=== PATIENT | male | born 1945 | race Caucasian/White ===

== ENCOUNTER → 2017-03-20 | Outpatient (CLI) | payer MEDICARE, BC ==
[~2017-03-20] MED LIST: AMLO10 PO; Advil200 M1; Ativan1 MG SL; CHLO25B PO; CLON.5 PO; ERGO50000 PO; LEVSOD150 PO; PRAM.125 PO; TRAM50 PO; VICODIN 5-3001 EACH PO; Zestril40 MG PO
== END ==
LOC: LAB 13:33
DX: N39.0 Urinary tract infection, site not specified (principal)
CPT/HCPCS: 87077; 87086; 87186

== ENCOUNTER → 2018-10-24 | Outpatient (CLI) | payer MEDICARE, BC | END | disposition home or self-care (01) | LOC: LAB 21:17 | DX: L03.115 Cellulitis of right lower limb (principal) | CPT/HCPCS: 87070; 87075; 87205 ==

== ENCOUNTER 2018-11-01 07:33 | Day surgery (SDC) | payer MEDICARE, BC | END 2018-11-01 23:43 | disposition home or self-care (01) | LOC: WOUND 07:33 | DX: L97.821 Non-pressure chronic ulcer of other part of left lower leg limited to breakdown of skin (principal); L97.811 Non-pressure chronic ulcer of other part of right lower leg limited to breakdown of skin; G47.33 Obstructive sleep apnea (adult) (pediatric); I10 Essential (primary) hypertension; J44.9 Chronic obstructive pulmonary disease, unspecified; L40.9 Psoriasis, unspecified | CPT/HCPCS: G0463 ==

== ENCOUNTER 2018-11-09 00:44 | Day surgery (SDC) | payer MEDICARE, BC | END 2018-11-09 22:54 | disposition home or self-care (01) | LOC: WOUND 00:44 | DX: L97.821 Non-pressure chronic ulcer of other part of left lower leg limited to breakdown of skin (principal); L97.811 Non-pressure chronic ulcer of other part of right lower leg limited to breakdown of skin; L40.0 Psoriasis vulgaris; I10 Essential (primary) hypertension | CPT/HCPCS: G0463 ==

== ENCOUNTER 2018-11-23 08:44 | Day surgery (SDC) | payer MEDICARE, BC | END 2018-11-23 23:39 | disposition home or self-care (01) | LOC: WOUND 08:44 | DX: L97.811 Non-pressure chronic ulcer of other part of right lower leg limited to breakdown of skin (principal); L97.821 Non-pressure chronic ulcer of other part of left lower leg limited to breakdown of skin; L40.0 Psoriasis vulgaris; I10 Essential (primary) hypertension | CPT/HCPCS: 87081 ==

== ENCOUNTER 2018-11-26 14:42 | Day surgery (SDC) | payer MEDICARE, BC | END 2018-11-26 22:53 | disposition home or self-care (01) | LOC: WOUND 14:42 | DX: L97.811 Non-pressure chronic ulcer of other part of right lower leg limited to breakdown of skin (principal); L97.821 Non-pressure chronic ulcer of other part of left lower leg limited to breakdown of skin; J44.9 Chronic obstructive pulmonary disease, unspecified; G47.33 Obstructive sleep apnea (adult) (pediatric); I10 Essential (primary) hypertension; L40.0 Psoriasis vulgaris; Z86.14 Personal history of Methicillin resistant Staphylococcus aureus infection; Z79.899 Other long term (current) drug therapy ==

== ENCOUNTER 2018-11-28 09:36 | Day surgery (SDC) | payer MEDICARE, BC | END 2018-11-28 23:01 | disposition home or self-care (01) | LOC: WOUND 09:36 | DX: L97.811 Non-pressure chronic ulcer of other part of right lower leg limited to breakdown of skin (principal); L97.821 Non-pressure chronic ulcer of other part of left lower leg limited to breakdown of skin; L40.0 Psoriasis vulgaris; I10 Essential (primary) hypertension; Z86.14 Personal history of Methicillin resistant Staphylococcus aureus infection ==

== ENCOUNTER 2018-11-30 00:43 | Day surgery (SDC) | payer MEDICARE, BC | END 2018-11-30 23:00 | disposition home or self-care (01) | LOC: WOUND 00:43 | DX: L97.811 Non-pressure chronic ulcer of other part of right lower leg limited to breakdown of skin (principal); L40.0 Psoriasis vulgaris; I10 Essential (primary) hypertension; G47.33 Obstructive sleep apnea (adult) (pediatric); J44.9 Chronic obstructive pulmonary disease, unspecified ==

== ENCOUNTER 2018-12-06 10:51 | Day surgery (SDC) | payer MEDICARE, BC | END 2018-12-06 23:16 | disposition home or self-care (01) | LOC: WOUND 10:51 | DX: L97.811 Non-pressure chronic ulcer of other part of right lower leg limited to breakdown of skin (principal); L40.0 Psoriasis vulgaris; I10 Essential (primary) hypertension; J44.9 Chronic obstructive pulmonary disease, unspecified; E03.9 Hypothyroidism, unspecified; G47.33 Obstructive sleep apnea (adult) (pediatric); Z79.899 Other long term (current) drug therapy ==

== ENCOUNTER 2018-12-14 00:33 | Day surgery (SDC) | payer MEDICARE, BC | END 2018-12-14 22:54 | disposition home or self-care (01) | LOC: WOUND 00:33 | DX: L97.811 Non-pressure chronic ulcer of other part of right lower leg limited to breakdown of skin (principal); L97.821 Non-pressure chronic ulcer of other part of left lower leg limited to breakdown of skin; L40.0 Psoriasis vulgaris; I10 Essential (primary) hypertension; K58.9 Irritable bowel syndrome, unspecified; E03.9 Hypothyroidism, unspecified; G47.33 Obstructive sleep apnea (adult) (pediatric); J44.9 Chronic obstructive pulmonary disease, unspecified; G62.9 Polyneuropathy, unspecified; H40.9 Unspecified glaucoma; Z88.1 Allergy status to other antibiotic agents; Z91.048 Other nonmedicinal substance allergy status; Z79.899 Other long term (current) drug therapy | CPT/HCPCS: G0463 ==

== ENCOUNTER 2018-12-21 08:51 | Day surgery (SDC) | payer MEDICARE, BC ==
[2018-12-22] MEDS ORDERED: LORA1SY PO (18:17)
[2018-12-22] MEDS ORDERED: Flonase 0.05% N16 GM (18:18)
[2018-12-22] MEDS ORDERED: DOC250 PO (18:18)
== END 2018-12-21 23:51 | disposition home or self-care (01) ==
LOC: WOUND 08:51
DX: L97.811 Non-pressure chronic ulcer of other part of right lower leg limited to breakdown of skin (principal); L40.0 Psoriasis vulgaris; I87.2 Venous insufficiency (chronic) (peripheral); I10 Essential (primary) hypertension; J44.9 Chronic obstructive pulmonary disease, unspecified; E03.9 Hypothyroidism, unspecified; Z79.899 Other long term (current) drug therapy

== ENCOUNTER 2018-12-22 17:59 | Emergency (ER) | payer MEDICARE, BC ==
[~2018-12-22] VITALS: Ht 177.8 cm; Wt 136.1 kg
[2018-12-22] MEDS ORDERED: LORA1SY PO (18:17)
[2018-12-22] MEDS ORDERED: DOC250 PO (18:18)
[2018-12-22] MEDS ORDERED: Flonase 0.05% N16 GM (18:18)
== END 2018-12-22 20:40 | disposition home or self-care (01) ==
LOC: ER 17:59
DX: I83.218 Varicose veins of right lower extremity with both ulcer of other part of lower extremity and inflammation (principal); I83.228 Varicose veins of left lower extremity with both ulcer of other part of lower extremity and inflammation; Z48.01 Encounter for change or removal of surgical wound dressing; I10 Essential (primary) hypertension; E03.9 Hypothyroidism, unspecified; Z87.891 Personal history of nicotine dependence; Z91.048 Other nonmedicinal substance allergy status; Z91.040 Latex allergy status; Z88.8 Allergy status to other drugs, medicaments and biological substances; Z88.1 Allergy status to other antibiotic agents; Z88.5 Allergy status to narcotic agent; Z79.899 Other long term (current) drug therapy
CPT/HCPCS: 99282

== ENCOUNTER 2018-12-25 11:41 | Day surgery (SDC) | payer MEDICARE, BC ==
[~2018-12-25 11:41] MED LIST changes: +DOC250 PO; +Flonase 0.05% N16 GM; +LORA1SY PO
== END 2018-12-25 22:40 | disposition home or self-care (01) ==
LOC: WOUND 11:41
DX: L97.811 Non-pressure chronic ulcer of other part of right lower leg limited to breakdown of skin (principal); L40.0 Psoriasis vulgaris; I10 Essential (primary) hypertension; G47.33 Obstructive sleep apnea (adult) (pediatric); J44.9 Chronic obstructive pulmonary disease, unspecified; Z79.899 Other long term (current) drug therapy

== ENCOUNTER 2018-12-27 14:21 | Day surgery (SDC) | payer MEDICARE, BC | END 2018-12-27 23:14 | disposition home or self-care (01) | LOC: WOUND 14:21 | DX: L97.811 Non-pressure chronic ulcer of other part of right lower leg limited to breakdown of skin (principal); L40.0 Psoriasis vulgaris; I87.2 Venous insufficiency (chronic) (peripheral); I10 Essential (primary) hypertension; G47.33 Obstructive sleep apnea (adult) (pediatric); J44.9 Chronic obstructive pulmonary disease, unspecified ==

== ENCOUNTER 2018-12-31 07:53 | Day surgery (SDC) | payer MEDICARE, BC | END 2018-12-31 22:59 | disposition home or self-care (01) | LOC: WOUND 07:53 | DX: L97.811 Non-pressure chronic ulcer of other part of right lower leg limited to breakdown of skin (principal); L40.0 Psoriasis vulgaris; I10 Essential (primary) hypertension; J44.9 Chronic obstructive pulmonary disease, unspecified; G47.33 Obstructive sleep apnea (adult) (pediatric); Z79.899 Other long term (current) drug therapy ==

== ENCOUNTER 2019-01-08 08:09 | Day surgery (SDC) | payer MEDICARE, BC | END 2019-01-08 22:59 | disposition home or self-care (01) | LOC: WOUND 08:09 | DX: L97.811 Non-pressure chronic ulcer of other part of right lower leg limited to breakdown of skin (principal); L40.0 Psoriasis vulgaris; I10 Essential (primary) hypertension; J44.9 Chronic obstructive pulmonary disease, unspecified; G47.33 Obstructive sleep apnea (adult) (pediatric); E03.9 Hypothyroidism, unspecified; L84 Corns and callosities; Z79.899 Other long term (current) drug therapy | CPT/HCPCS: 36415; 80076; 83880; 85025; G0463 ==

== ENCOUNTER → 2019-04-05 | Outpatient (CLI) | payer MEDICARE, BC ==
[2019-04-05 10:59] LABS: Source, Urine Clean Catch
[2019-04-05 12:13] LABS: Bilirubin, Urine Neg (Neg); Blood, Urine 3+ (Neg); Glucose Qualitative, Urine Neg (Neg); Ketones, Urine Neg (Neg); Leukocyte Esterase, Urine Neg (Neg); Nitrite, Urine Neg (Neg); Protein, Urine Neg (Neg); Specific Gravity, Urine 1.005 (1.003-1.022); Urobilinogen, Urine NORM (Normal)
[2019-04-05 12:29] LABS: Appearance, Urine Clear (Clear); Color, Urine Yellow (P-Yellow)
[2019-04-05 12:30] LABS: Bacteria Rare /hpf; Squamous Epithelial Cells Rare /hpf (Few); White Blood Cells, Urine 0-2 /hpf (0-5)
== END | disposition home or self-care (01) ==
LOC: LAB SHORT 10:58 → OLS 10:58 → LAB FUT 04-05 09:40
PROVIDERS: Physical Medicine & Rehabilitation Pain Medicine
DX: M54.5 Low back pain (principal)
CPT/HCPCS: 81001

== ENCOUNTER 2019-10-29 08:41 | Day surgery (SDC) | payer MEDICARE, BC ==
[~2019-10-29] VITALS: Ht 177.8 cm; Wt 139.8 kg
[~2019-10-29 08:41] MED LIST changes: +B-COMPLEX PLU400 MCG PO; +CLOBETASOL 0.0560 GM; +FURO40 PO; +LEVO-T175 MCG PO; +METTREX2.5 PO; +OXYC10TA19 PO; +PRAM.5 PO
== END 2019-10-29 11:00 | disposition home or self-care (01) ==
LOC: ORSCSDS 08:41
PROVIDERS: Surgery
PROC: 0DJD8ZZ Inspection of Lower Intestinal Tract, Via Natural or Artificial Opening Endoscopic (ICD-10-PCS; principal; 2019-10-29 10:00)
DX: Z12.11 Encounter for screening for malignant neoplasm of colon (principal); Z86.010 Personal history of colon polyps; Z80.0 Family history of malignant neoplasm of digestive organs; I10 Essential (primary) hypertension; G47.33 Obstructive sleep apnea (adult) (pediatric); E66.01 Morbid (severe) obesity due to excess calories; Z68.41 Body mass index [BMI] 40.0-44.9, adult; Z87.891 Personal history of nicotine dependence; Z79.899 Other long term (current) drug therapy
CPT/HCPCS: J2704; J7120

== ENCOUNTER → 2020-06-11 | Outpatient (CLI) | payer MEDICARE, BC ==
[2020-06-11 14:20] LABS: BASOPHILS ABSOLUTE AUTO 0.06 K/mm3 (0.00-0.23); BASOPHILS PERCENT AUTO 1 % (0-2); EOSINOPHILS ABSOLUTE AUTO 0.18 K/mm3 (0.00-0.68); EOSINOPHILS PERCENT AUTO 2 % (0-6); Hematocrit 40.2 % (37.0-53.0); IMMATURE GRAN ABSOLUTE AUTO 0.02 K/mm3 (0.00-0.10); IMMATURE GRAN PERCENT AUTO 0 % (0-1); LYMPHOCYTES ABSOLUTE AUTO 0.85 K/mm3 (0.84-5.20); LYMPHOCYTES PERCENT AUTO 9 % (21-46); MONOCYTES ABSOLUTE AUTO 0.53 K/mm3 (0.16-1.47); MONOCYTES PERCENT AUTO 6 % (4-13); Mean Corpuscular HGB 31.4 pg (26.0-34.0); Mean Corpuscular HGB Conc 32.3 g/dL (31.5-36.5); Mean Corpuscular Volume 97 fL (80-100); Mean Platelet Volume 9.6 fL (9.1-12.4); NEUTROPHILS ABSOLUTE AUTO 7.73 K/mm3 (1.96-9.15); NEUTROPHILS PERCENT AUTO 83 % (41-73); Platelet Count 243 K/mm3 (150-400); RDW Coefficient Variation 13.5 % (11.7-14.2); RDW Standard Deviation 48.6 fL (35.1-46.3); Red Blood Cell Count 4.14 M/mm3 (4.30-5.90); White Blood Cell Count 9.37 K/mm3 (4.00-11.30)
[2020-06-11 16:24] LABS: Alanine Aminotransfer (ALT/SGP 32 U/L (12-78); Albumin, Blood 3.6 g/dL (3.4-5.0); Alk Phos 87 U/L (50-136); Anion Gap 3 mmol/L (6-16); Aspartate Aminotrans (AST/SGOT 50 U/L (12-37); Bilirubin, Total 0.4 mg/dL (0.1-1.0); Blood Urea Nitrogen 23 mg/dL (8-24); Bun/Creatinine Ratio 28.3 (12.0-20.0); CO2, Blood 32 mmol/L (21-32); Chloride, Blood 106 mmol/L (98-108); Creatinine, Blood 0.81 mg/dL (0.60-1.20); Globulin, Blood 3.6 g/dL (2.2-4.0); Glomerular Filtration Rate >60 (60-); Glucose, Blood 94 mg/dL (70-99); Potassium, Blood 3.6 mmol/L (3.5-5.5); Sodium, Blood 141 mmol/L (136-145); Total Protein, Blood 7.2 g/dL (6.4-8.2)
== END ==
LOC: LAB SHORT 11:51 → LAB UCHC 11:51
PROVIDERS: Internal Medicine Rheumatology
DX: L40.9 Psoriasis, unspecified (principal)
CPT/HCPCS: 80053; 85025; 85651

== ENCOUNTER → 2020-09-23 | Outpatient (CLI) | payer MEDICARE, BC ==
[2020-09-23 13:10] LABS: BASOPHILS ABSOLUTE AUTO 0.04 K/mm3 (0.00-0.23); BASOPHILS PERCENT AUTO 0 % (0-2); EOSINOPHILS ABSOLUTE AUTO 0.13 K/mm3 (0.00-0.68); EOSINOPHILS PERCENT AUTO 1 % (0-6); Hematocrit 39.9 % (37.0-53.0); Hemoglobin 13.1 g/dL (13.5-17.5); IMMATURE GRAN ABSOLUTE AUTO 0.04 K/mm3 (0.00-0.10); IMMATURE GRAN PERCENT AUTO 0 % (0-1); LYMPHOCYTES ABSOLUTE AUTO 0.74 K/mm3 (0.84-5.20); LYMPHOCYTES PERCENT AUTO 8 % (21-46); MONOCYTES ABSOLUTE AUTO 0.69 K/mm3 (0.16-1.47); MONOCYTES PERCENT AUTO 8 % (4-13); Mean Corpuscular HGB 31.7 pg (26.0-34.0); Mean Corpuscular HGB Conc 32.8 g/dL (31.5-36.5); Mean Corpuscular Volume 97 fL (80-100); Mean Platelet Volume 9.6 fL (9.1-12.4); NEUTROPHILS ABSOLUTE AUTO 7.59 K/mm3 (1.96-9.15); NEUTROPHILS PERCENT AUTO 82 % (41-73); Platelet Count 229 K/mm3 (150-400); RDW Coefficient Variation 14.6 % (11.7-14.2); RDW Standard Deviation 51.4 fL (35.1-46.3); Red Blood Cell Count 4.13 M/mm3 (4.30-5.90); White Blood Cell Count 9.23 K/mm3 (4.00-11.30)
[2020-09-23 14:17] LABS: Albumin, Blood 3.3 g/dL (3.4-5.0); Albumin/Globulin Ratio 0.9 (0.8-1.8); Bilirubin, Direct 0.1 mg/dL (0.0-0.3); Bilirubin, Indirect 0.2 mg/dL (0.1-0.7); Bilirubin, Total 0.3 mg/dL (0.1-1.0); Globulin, Blood 3.6 g/dL (2.2-4.0); Total Protein, Blood 6.9 g/dL (6.4-8.2)
== END | disposition home or self-care (01) ==
LOC: LAB SHORT 12:21 → LAB 12:21
PROVIDERS: Internal Medicine Rheumatology
DX: L40.9 Psoriasis, unspecified (principal)
CPT/HCPCS: 80076; 85025; 85651

== ENCOUNTER 2020-10-20 02:22 | Day surgery (SDC) | payer MEDICARE, BC | END 2020-10-20 22:41 | disposition home or self-care (01) | LOC: WOUND 02:22 | DX: L97.819 Non-pressure chronic ulcer of other part of right lower leg with unspecified severity (principal); I87.2 Venous insufficiency (chronic) (peripheral); I73.9 Peripheral vascular disease, unspecified; E03.9 Hypothyroidism, unspecified; G47.33 Obstructive sleep apnea (adult) (pediatric); I10 Essential (primary) hypertension; J44.9 Chronic obstructive pulmonary disease, unspecified; G62.9 Polyneuropathy, unspecified; L40.9 Psoriasis, unspecified; L93.0 Discoid lupus erythematosus; M19.90 Unspecified osteoarthritis, unspecified site; Z87.891 Personal history of nicotine dependence; Z88.1 Allergy status to other antibiotic agents; Z88.8 Allergy status to other drugs, medicaments and biological substances; Z91.048 Other nonmedicinal substance allergy status | CPT/HCPCS: A9270; G0463 ==

== ENCOUNTER → 2020-10-21 | Outpatient (CLI) | payer MEDICARE, BC | LOC: LAB 12:12 → LAB SHORT 12:12 | DX: D48.5 Neoplasm of uncertain behavior of skin (principal); C44.319 Basal cell carcinoma of skin of other parts of face | CPT/HCPCS: 88305 ==

== ENCOUNTER 2020-10-28 00:04 | Day surgery (SDC) | payer MEDICARE, BC | END 2020-10-28 23:58 | disposition home or self-care (01) | LOC: WOUND 00:04 | DX: L03.115 Cellulitis of right lower limb (principal); L97.829 Non-pressure chronic ulcer of other part of left lower leg with unspecified severity; I73.9 Peripheral vascular disease, unspecified; E03.9 Hypothyroidism, unspecified; I10 Essential (primary) hypertension; J44.9 Chronic obstructive pulmonary disease, unspecified | CPT/HCPCS: A9270; G0463 ==

== ENCOUNTER → 2020-11-03 | Outpatient (CLI) | payer MEDICARE, BC ==
[2020-11-03 18:29] LABS: Source, Urine Clean Catch
[2020-11-03 19:38] LABS: Appearance, Urine Hazy (Clear); Bilirubin, Urine Neg (Neg); Blood, Urine 5+ (Neg); Color, Urine Yellow (P-Yellow); Glucose Qualitative, Urine Neg (Neg); Ketones, Urine Neg (Neg); Leukocyte Esterase, Urine 3+ (Neg); Nitrite, Urine Neg (Neg); Protein, Urine 2+ (Neg); Specific Gravity, Urine 1.015 (1.003-1.022); Urobilinogen, Urine 1+ (Normal)
[2020-11-03 19:48] LABS: White Blood Cells, Urine 25-50 /hpf (0-5)
[2020-11-03 19:49] LABS: Bacteria Few /hpf; Mucus Light (0-Heavy); Squamous Epithelial Cells Many /hpf (Few)
== END | disposition home or self-care (01) ==
LOC: LAB SHORT 13:45 → LAB 13:45
PROVIDERS: Physician Assistant
DX: N30.00 Acute cystitis without hematuria (principal); R30.0 Dysuria
CPT/HCPCS: 81001; 87077; 87086; 87186

== ENCOUNTER 2020-11-04 02:30 | Day surgery (SDC) | payer MEDICARE, BC | END 2020-11-04 22:47 | disposition home or self-care (01) | LOC: WOUND 02:30 | DX: L97.829 Non-pressure chronic ulcer of other part of left lower leg with unspecified severity (principal); I87.2 Venous insufficiency (chronic) (peripheral); I73.9 Peripheral vascular disease, unspecified; K58.9 Irritable bowel syndrome, unspecified; E03.9 Hypothyroidism, unspecified; I10 Essential (primary) hypertension; J44.9 Chronic obstructive pulmonary disease, unspecified; G62.9 Polyneuropathy, unspecified | CPT/HCPCS: A9270; G0463 ==

== ENCOUNTER → 2020-11-26 | Outpatient (CLI) | payer MEDICARE, BC | LOC: LAB SHORT 12:35 → LAB 12:35 | DX: C44.310 Basal cell carcinoma of skin of unspecified parts of face (principal); L57.0 Actinic keratosis; L82.1 Other seborrheic keratosis | CPT/HCPCS: 88305 ==

== ENCOUNTER → 2021-01-20 | Outpatient (CLI) | payer MEDICARE, BC | END | disposition home or self-care (01) | LOC: LAB 11:41 → LAB SHORT 11:41 | DX: C44.329 Squamous cell carcinoma of skin of other parts of face (principal); C44.519 Basal cell carcinoma of skin of other part of trunk | CPT/HCPCS: 88305 ==

== ENCOUNTER → 2021-03-08 | Outpatient (CLI) | payer MEDICARE, BC | END | disposition home or self-care (01) | LOC: LAB SHORT 14:57 | DX: D04.39 Carcinoma in situ of skin of other parts of face (principal) | CPT/HCPCS: 88305 ==

== ENCOUNTER → 2021-09-21 | Outpatient (CLI) | payer MEDICARE, BC | END | disposition home or self-care (01) | LOC: LAB SHORT 10:30 → PLD 10:30 | DX: K13.0 Diseases of lips (principal); K14.0 Glossitis | CPT/HCPCS: 88305; 88312 ==

== ENCOUNTER → 2021-11-30 | Outpatient (CLI) | payer MEDICARE, BC | END | disposition home or self-care (01) | LOC: LAB 07:40 → LAB SHORT 07:40 | DX: R30.0 Dysuria (principal); R35.0 Frequency of micturition; R39.15 Urgency of urination | CPT/HCPCS: 87077; 87086; 87186 ==

== ENCOUNTER 2021-12-21 11:12 | Day surgery (SDC) | payer MEDICARE, BC ==
[~2021-12-21] VITALS: Ht 177.8 cm; Wt 126.8 kg
[2021-12-21] MEDS ORDERED: CALCIUM CIT 311 EAC7 (12:05)
[2021-12-21] MEDS ORDERED: DOC250 (12:06)
[2021-12-21] MEDS ORDERED: MONT10T (12:06)
[2021-12-21] MEDS ORDERED: IRON18 MG (12:06)
[2021-12-21] MEDS ORDERED: OMEP20ER (12:06)
[2021-12-21] MEDS ORDERED: POTA8 (12:07)
[2021-12-21] MEDS ORDERED: COSENTYX P150 MG/11 (12:07)
[2021-12-21] MEDS ORDERED: TRAM50 (12:08)
[2021-12-21] MEDS ORDERED: NYSTRIT (12:08)
--- NOTE | 2021-12-21 12:43 | NUR ---
12/21/21 1243 Mellissa Ramos TWO ATTEMPTS AT IV. FIRST ATTEMPT BY AMY IN R WRIST INFILTRATED. SECOND ATTEMPT IN R HAND BY AMY SUCESSFUL.
== END 2021-12-21 13:45 | disposition home or self-care (01) ==
LOC: ORSCSDS 11:12
PROVIDERS: Student in an Organized Health Care Education/Training Program
PROC: 0DB78ZX Excision of Stomach, Pylorus, Via Natural or Artificial Opening Endoscopic, Diagnostic (ICD-10-PCS; principal; 2021-12-21 12:45)
PROC: 0DB98ZX Excision of Duodenum, Via Natural or Artificial Opening Endoscopic, Diagnostic (ICD-10-PCS; principal; 2021-12-21 12:45)
PROC: 0DB58ZX Excision of Esophagus, Via Natural or Artificial Opening Endoscopic, Diagnostic (ICD-10-PCS; principal; 2021-12-21 12:45)
DX: R13.10 Dysphagia, unspecified (principal); K29.80 Duodenitis without bleeding; K20.80 Other esophagitis without bleeding; I10 Essential (primary) hypertension; G47.33 Obstructive sleep apnea (adult) (pediatric); E66.01 Morbid (severe) obesity due to excess calories; Z68.41 Body mass index [BMI] 40.0-44.9, adult; Z87.891 Personal history of nicotine dependence; Z79.899 Other long term (current) drug therapy
CPT/HCPCS: 88305; 88312; 88342; J2704; J7120

== ENCOUNTER → 2022-06-17 | Outpatient (CLI) | payer MEDICARE, BC ==
[~2022-06-17] MED LIST changes: +CALCIUM CIT 311 EAC7; +COSENTYX P150 MG/11; +DOC250; +IRON18 MG; +MONT10T; +NYSTRIT; +OMEP20ER; +POTA8; +TRAM50
[2022-06-17 13:54] LABS: Source, Urine Clean Catch
[2022-06-17 14:46] LABS: Appearance, Urine Clear (Clear); Bilirubin, Urine Neg (Neg); Blood, Urine 5+ (Neg); Color, Urine Yellow (P-Yellow); Glucose Qualitative, Urine Neg (Neg); Ketones, Urine Neg (Neg); Leukocyte Esterase, Urine Neg (Neg); Nitrite, Urine Neg (Neg); Protein, Urine 2+ (Neg); Urobilinogen, Urine 1+ (Normal)
[2022-06-17 15:10] LABS: Red Blood Cells, Urine 25-50 /hpf (0-2)
[2022-06-17 15:12] LABS: Bacteria Rare /hpf; Mucus Light (0-Heavy); Squamous Epithelial Cells Rare /hpf (Few)
== END | disposition home or self-care (01) ==
LOC: LAB 13:52 → LAB SHORT 13:52
PROVIDERS: Nurse Practitioner Family
DX: R30.0 Dysuria (principal)
CPT/HCPCS: 81001

== ENCOUNTER → 2022-08-22 | Outpatient (CLI) | payer MEDICARE, BC ==
[~2022-08-22] MED LIST changes: +ATOR20 PO; +BUPRENORPHINE HC2 MG TOP; +CLOT10 MT; +COQ1050 MG PO; -COSENTYX P150 MG/11; +COSENTYX P150 MG/11 SC; -IRON18 MG; +IRON18 MG PO; +L-Lysine500 M1 PO; +LATANOPROST2.5 M3 BOTHEYES; +MIRAPEX0.25 M3 PO; -OMEP20ER; +OMEP20ER PO; -POTA8; +POTA8 PO; +VITAMIN D310 MC4 PO
== END ==
LOC: PLD 12:18 → LAB SHORT 12:18
DX: C44.311 Basal cell carcinoma of skin of nose (principal)
CPT/HCPCS: 88305

== ENCOUNTER 2022-09-06 08:23 | Day surgery (SDC) | payer MEDICARE, BC ==
[2022-09-06] VITALS (16 sets, daily range): BP systolic 120–167; BP diastolic 57–84
[~2022-09-06] VITALS: Ht 175.3 cm; Wt 129.0 kg
[2022-09-06] MEDS ORDERED: MULTI-VITAMIN1 EAC2 PO (10:11)
[2022-09-06] MEDS ORDERED: MUPIROCIN111 TOP (10:31)
--- NOTE | 2022-09-06 11:29 | NUR ---
ALIREZA FROM [facility] TO TO PLACE IV USING US.
--- NOTE | 2022-09-06 15:20 | NUR ---
ARRIVAL PATIENT TO ROOM VIA BED. VSS ON 2L 02. LUNGS CLEAR, DIMINISHED IN BASES. AQUACEL, ROSEY WRAP, & POLAR PACK TO RIGHT KNEE, C/D/I. PATIENT HAS FULL SENSATION TO BLE, WIGGLES FEET APPROPRIATELY. ORIENTED TO ROOM & CALL LIGHT. EDUCATED ON FIRE SAFETY, DENIES ANY SOURCE OF IGNITION. DISCUSSED PAIN MANAGEMENT.
--- NOTE | 2022-09-06 18:10 | NUR ---
SHIFT SUMMARY TOOK OVER CARE 1700. PT A&OX4, VSS/RA, KRISTOPHER PO, VOIDED/URINAL, REPOSITIONS SELF, PAIN MANAGED. WILL REPORT TO ONCOMING NOC RN.
[2022-09-07 00:36] VITALS: BP 144/62
[2022-09-07 04:20] LABS: BASOPHILS ABSOLUTE AUTO 0.01 K/mm3 (0.00-0.23); BASOPHILS PERCENT AUTO 0 % (0-2); EOSINOPHILS PERCENT AUTO 0 % (0-6); Hematocrit 33.1 % (37.0-53.0); Hemoglobin 10.4 g/dL (13.5-17.5); IMMATURE GRAN ABSOLUTE AUTO 0.05 K/mm3 (0.00-0.10); IMMATURE GRAN PERCENT AUTO 0 % (0-1); LYMPHOCYTES ABSOLUTE AUTO 0.51 K/mm3 (0.84-5.20); LYMPHOCYTES PERCENT AUTO 4 % (21-46); MONOCYTES ABSOLUTE AUTO 0.51 K/mm3 (0.16-1.47); MONOCYTES PERCENT AUTO 4 % (4-13); Mean Corpuscular HGB 29.1 pg (26.0-34.0); Mean Corpuscular HGB Conc 31.4 g/dL (31.5-36.5); Mean Corpuscular Volume 93 fL (80-100); NEUTROPHILS ABSOLUTE AUTO 12.63 K/mm3 (1.96-9.15); NEUTROPHILS PERCENT AUTO 92 % (41-73); Platelet Count 185 K/mm3 (150-400); RDW Coefficient Variation 14.6 % (11.7-14.2); RDW Standard Deviation 50.2 fL (35.1-46.3); Red Blood Cell Count 3.57 M/mm3 (4.30-5.90); White Blood Cell Count 13.71 K/mm3 (4.00-11.30)
[2022-09-07 04:35] LABS: Bun/Creatinine Ratio 23.4 (12.0-20.0); Calcium, Blood 8.1 mg/dL (8.5-10.1); Creatinine, Blood 0.94 mg/dL (0.60-1.20); Potassium, Blood 4.2 mmol/L (3.5-5.5)
--- NOTE | 2022-09-07 06:26 | NUR ---
POD 1 S/P R TKA. PT VSS T/O NIGHT. DRESSING CDI. PAIN MGD W/SCHEDULED TYLENOL AND TORADOL W/REP RELIEF; PT DENIED NEED FOR ADDITIONAL PAIN MEDS. PT STOOD UP TO SIDE OF BED, TOOK A FEW STEPS, BUT WAS HESITANT TO GO FURTHER UNTIL PT EVAL R/T HX OF R DROP FOOT. PT KRISTOPHER PO, DENIED N/V, IS VOIDING URINE W/O DIFFICULTY. POLAR PACK IN PLACE. PLAN TO MOBILIZE W/PT AND DC HOME. NO IGNITION RISKS IDENTIFIED.
[2022-09-07 07:32] VITALS: BP 138/66
[2022-09-07] MEDS ORDERED: Percocet 5-3251 EACH PO (08:42)
[2022-09-07] MEDS ORDERED: ASPI81CH PO (08:42)
--- NOTE | 2022-09-07 10:12 | NUR ---
DISCHARGE NOTE: PATIENT WAS EDUCATED ON DISCHARGE INSTRUCTIONS. HE VERBALIZED UNDERSTANDING OF DISCHARGE INSTRUCTIONS AND HAD NO FURTHER QUESTIONS AT THIS TIME. HARD PERSCRIPTIONS WERE PLACED IN DISCHARGE FOLDER. IV WAS TAKEN OUT AND WNL. PAIN IS MANAGED WITH ORAL PAIN MEDICATIONS. HIS RIGHT KNEE HAS AN AQUACEL AND ROSEY WRAP THAT IS C/D/I. DENIES NUMBNESS OR TINGLING IN ALL EXTREMITIES. CAN MOVE ALL FINGERS AND TOES WHEN ASKED. HE IS A SBA WITH FWW AND GAIT BELT. HE IS TOLERATING PO INTAKE AND IS VOIDING. PATIENT IS DRESSED AND HAS ITEMS IN THE ROOM GATHERED. AWAITING FOR PATIENTS RIDE TO COME WHICH THEN HE WOULD BE WHEELCHAIRED DOWN AND TAKEN HOME.
--- NOTE | 2022-09-07 10:15 | NUR ---
PATIENT WAS EDUCATED ON IGNITION SOURCES AND RISK OF INJURY WITH OXYGEN IN USE. PATIENT VERBALIZED UNDERSTANDING OF EDUCATION AND HAD NO FURTHER QUESTIONS AT THIS TIME.
--- NOTE | 2022-09-07 11:14 | NUR ---
PATIENT IS BEING WHEELCHAIRED OUT TO HIS RIDE TO BE TAKEN HOME.
== END 2022-09-07 11:13 | disposition home or self-care (01) ==
LOC: ORSCMMR 08:23 → ORD 10:00 → SURS 15:17 → ORSCMMR 09-07 11:13
PROVIDERS: Orthopaedic Surgery
PROC: 8E0Y0CZ Robotic Assisted Procedure of Lower Extremity, Open Approach (ICD-10-PCS; principal; 2022-09-06 10:00)
PROC: 0SRC0JA Replacement of Right Knee Joint with Synthetic Substitute, Uncemented, Open Approach (ICD-10-PCS; principal; 2022-09-06 10:00)
DX: M17.11 Unilateral primary osteoarthritis, right knee (principal); I10 Essential (primary) hypertension; E78.5 Hyperlipidemia, unspecified; E03.9 Hypothyroidism, unspecified; E66.01 Morbid (severe) obesity due to excess calories; Z68.41 Body mass index [BMI] 40.0-44.9, adult; G47.33 Obstructive sleep apnea (adult) (pediatric); K21.9 Gastro-esophageal reflux disease without esophagitis; E78.00 Pure hypercholesterolemia, unspecified; Z79.899 Other long term (current) drug therapy
CPT/HCPCS: 27447; 20985; S2900; 36415; 73560-RT; 80048; 85025; 94660; 94762; 97110; 97162; 97530; A9270; C1776; J0171; J0690; J0735; J1100; J1885; J2371; J2405; J2704; J2795; J3010; J3370; J7120

== ENCOUNTER 2022-09-12 07:18 | Emergency (ER) | payer MEDICARE, BC ==
[~2022-09-12] VITALS: Ht 188 cm; Wt 113.4 kg
[~2022-09-12 07:18] MED LIST changes: +ASPI81CH PO; +MULTI-VITAMIN1 EAC2 PO; +MUPIROCIN111 TOP; +Percocet 5-3251 EACH PO
[2022-09-12 08:04] LABS: BASOPHILS ABSOLUTE AUTO 0.02 K/mm3 (0.00-0.23); BASOPHILS PERCENT AUTO 0 % (0-2); EOSINOPHILS ABSOLUTE AUTO 0.22 K/mm3 (0.00-0.68); EOSINOPHILS PERCENT AUTO 3 % (0-6); Hematocrit 30.4 % (37.0-53.0); Hemoglobin 9.8 g/dL (13.5-17.5); IMMATURE GRAN ABSOLUTE AUTO 0.06 K/mm3 (0.00-0.10); IMMATURE GRAN PERCENT AUTO 1 % (0-1); LYMPHOCYTES ABSOLUTE AUTO 0.78 K/mm3 (0.84-5.20); LYMPHOCYTES PERCENT AUTO 9 % (21-46); MONOCYTES ABSOLUTE AUTO 0.65 K/mm3 (0.16-1.47); MONOCYTES PERCENT AUTO 8 % (4-13); Mean Corpuscular HGB 29.7 pg (26.0-34.0); Mean Corpuscular HGB Conc 32.2 g/dL (31.5-36.5); Mean Corpuscular Volume 92 fL (80-100); Mean Platelet Volume 8.9 fL (9.1-12.4); NEUTROPHILS ABSOLUTE AUTO 6.65 K/mm3 (1.96-9.15); NEUTROPHILS PERCENT AUTO 79 % (41-73); Platelet Count 231 K/mm3 (150-400); RDW Coefficient Variation 14.9 % (11.7-14.2); RDW Standard Deviation 50.5 fL (35.1-46.3); White Blood Cell Count 8.38 K/mm3 (4.00-11.30)
[2022-09-12 08:25] LABS: Albumin, Blood 2.7 g/dL (3.4-5.0); Albumin/Globulin Ratio 0.7 (0.8-1.8); Bilirubin, Total 0.6 mg/dL (0.1-1.0); Bun/Creatinine Ratio 18.2 (12.0-20.0); C-REACTIVE PROTEIN, EXT RANGE 6.54 mg/dL (0.000-0.300); Calcium, Blood 8.2 mg/dL (8.5-10.1); Creatinine, Blood 0.99 mg/dL (0.60-1.20); Globulin, Blood 3.7 g/dL (2.2-4.0); Potassium, Blood 4.1 mmol/L (3.5-5.5); Total Protein, Blood 6.4 g/dL (6.4-8.2)
[2022-09-12 12:48] VITALS: BP 160/100
== END 2022-09-12 12:49 | disposition home or self-care (01) ==
LOC: ER 07:18
PROVIDERS: Emergency Medicine
DX: G89.18 Other acute postprocedural pain (principal); M25.561 Pain in right knee; E03.9 Hypothyroidism, unspecified; I10 Essential (primary) hypertension; Z88.8 Allergy status to other drugs, medicaments and biological substances; Z88.1 Allergy status to other antibiotic agents; Z91.048 Other nonmedicinal substance allergy status; Z79.899 Other long term (current) drug therapy; Z79.82 Long term (current) use of aspirin
CPT/HCPCS: 73562-RT; 80053; 85025; 85651; 86140; 97162; 97530; 99284-25; A9270

== ENCOUNTER 2023-01-09 09:45 | Inpatient (IN) | payer MEDICARE, BC ==
[~2023-01-09] VITALS: Ht 177.8 cm; Wt 128.0 kg
[2023-01-09] VITALS (25 sets, daily range): BP systolic 91–163; BP diastolic 47–123
[~2023-01-09 09:45] MED LIST changes: +EUTHYROX175 MCG PO; -LEVO-T175 MCG PO
[2023-01-09] MEDS ORDERED: BUPRENORPHINE HC2 MG SL (10:46)
--- NOTE | 2023-01-09 11:32 | NUR ---
PT UNABLE TO STAND ON SCALE FROM W/C. ABLE TO TRANSFER FROM W/C TO BED WITH STANDBY ASSISTANCE. Surgical site prepped with 2% Chlorhexidine cloth wipe. History, Chart, Medications and Allergies reviewed before start of procedure. Lungs clear T/O to Auscultation. Patient confirms NPO status and agrees with scheduled surgery. Pre-Op teaching done. Pt verbalizes understanding. Patient States Post-Procedure ride home has been arranged WITH . PT'S HAS HIS GLASSES IN HER POCKET. BOTH LEG BRACES PLACED UNDER GURN WITH SHOES AND OTHER BELONGINGS. PT DENTURES PLACED IN PACU.
--- NOTE | 2023-01-09 17:16 | NUR ---
SUMMARY PT ARRIVED TO UNIT FROM PACU THIS AFTERNOON. AWAKE WHEN ARRIVED TO ROOM, A&OX4. ROSEY WRAP TO RLE CDI, HEMOVAC COMPRESSED. VSS. PT NOW SLEEPING, 02 SATS 99% ON 2L NC. RESPIRATIONS E/U. CALL LIGHT IN REACH.
[2023-01-10 02:42] VITALS: BP 129/61
[2023-01-10 04:11] LABS: BASOPHILS ABSOLUTE AUTO 0.01 K/mm3 (0.00-0.23); BASOPHILS PERCENT AUTO 0 % (0-2); EOSINOPHILS PERCENT AUTO 0 % (0-6); Hematocrit 29.3 % (37.0-53.0); Hemoglobin 9.1 g/dL (13.5-17.5); IMMATURE GRAN ABSOLUTE AUTO 0.07 K/mm3 (0.00-0.10); IMMATURE GRAN PERCENT AUTO 1 % (0-1); LYMPHOCYTES ABSOLUTE AUTO 0.56 K/mm3 (0.84-5.20); LYMPHOCYTES PERCENT AUTO 5 % (21-46); MONOCYTES ABSOLUTE AUTO 0.39 K/mm3 (0.16-1.47); MONOCYTES PERCENT AUTO 4 % (4-13); Mean Corpuscular HGB 29.1 pg (26.0-34.0); Mean Corpuscular HGB Conc 31.1 g/dL (31.5-36.5); Mean Corpuscular Volume 94 fL (80-100); Mean Platelet Volume 8.4 fL (9.1-12.4); NEUTROPHILS ABSOLUTE AUTO 9.86 K/mm3 (1.96-9.15); NEUTROPHILS PERCENT AUTO 91 % (41-73); Platelet Count 363 K/mm3 (150-400); RDW Coefficient Variation 14.6 % (11.7-14.2); RDW Standard Deviation 49.8 fL (35.1-46.3); Red Blood Cell Count 3.13 M/mm3 (4.30-5.90); White Blood Cell Count 10.89 K/mm3 (4.00-11.30)
[2023-01-10 04:25] LABS: Bun/Creatinine Ratio 37.2 (12.0-20.0); Calcium, Blood 8.1 mg/dL (8.5-10.1); Creatinine, Blood 0.75 mg/dL (0.60-1.20); Magnesium, Blood 1.8 mg/dL (1.6-2.4); Potassium, Blood 4.7 mmol/L (3.5-5.5)
--- NOTE | 2023-01-10 05:02 | NUR ---
SHIFT SUMMARY NO ACUTE CHANGES THIS SHIFT. PT SLEPT WELL WITH CPAP IN PLACE. BUPRENORPHINE FOR PAIN MANAGEMENT. ROSEY WRAP TO RLE REMAINS CDI AND LEG ELEVATED ON PILLOWS. HEMOVAC WITH SMALL AMOUNT RED DRAINAGE, COMPRESSED. PT HAS HAD GOOD BED MOBILITY AND HAS DANGLED ON THE SIDE OF BED. USES URINAL INDEPENDENTLY. LLE REMAINS WRAPPED WELL R/T LEG WOUNDS. IV ABX PER ORDERS. PT USES CALL LIGHT APPROPRIATLEY.
[2023-01-10 07:55] VITALS: BP 129/68
--- NOTE | 2023-01-10 12:00 | NUR ---
DR ZENDEJAS IN TO SEE PT.
--- NOTE | 2023-01-10 12:20 | NUR ---
Pt. is awake and sitting in a recliner when he welcomes my visit. Spouse is present at bedside. Pt. is pleasant. Facilitate a life reivew where we also consider matters of jose and belief. Rapport is established. Prayed with Pt. and spouse. Pt. verbalized gratitude for the spiritual care visit and welcmed this certified maintenance welder to return.
[2023-01-10] MEDS ORDERED: MIRALAX11914 PO (13:54)
[2023-01-10] MEDS ORDERED: FLUC200 PO (14:01)
[2023-01-10] MEDS ORDERED: FOLI1 PO (14:05)
[2023-01-10] MEDS ORDERED: COSENTYX P150 MG/1 M SC (14:05)
[2023-01-10] MEDS ORDERED: METHOTREXATE2.510 PO (14:08)
[2023-01-10 15:31] VITALS: BP 133/87
--- NOTE | 2023-01-10 17:19 | NUR ---
DR AYALA IN TO SEE PT AND SPOUSE.
--- NOTE | 2023-01-10 18:13 | NUR ---
SUMMARY NO ACUTE CHANGES T/O SHIFT. PT GOT UP TO RECLINER AND WORKED WITH THERAPY. EATING AND VOIDING WELL. PICC LINE PLACED THIS SHIFT FOR PLANNED EXTENDED ABX THERAPY. DR AYALA IN TO SEE PT AND SPOUSE TO DISCUSS PLAN THIS EVENING. CALL LIGHT IN REACH.
[2023-01-10 20:01] VITALS: BP 108/60
[2023-01-11 03:22] VITALS: BP 136/62
--- NOTE | 2023-01-11 05:29 | NUR ---
SHIFT SUMMARY NOC. PT A/O X4. PT'S RIGHT LOWER EXTREMITY IS WRAPPED WITH ROSEY AND APPEARS C/D/I. DRAIN IS FREE OF KINKS AND COMPRESSED AND PRODUCING SANG DRAINAGE. PT RESTED WITH CPAP AND CONTINUOUS PULSE OX INPLACE. SATS REMAINED ABOVE 93%. CALL LIGHT IN REACH.
[2023-01-11 07:14] VITALS: BP 159/79
[2023-01-11 10:27] LABS: Creatinine, Blood 0.78 mg/dL (0.60-1.20)
[2023-01-11 10:29] LABS: Vancomycin, Trough 24.5 ug/mL (5.0-10.0)
[2023-01-11 14:20] VITALS: BP 141/76
--- NOTE | 2023-01-11 16:04 | NUR ---
GIOVANNA FRANCIS MADE AWARE OF KNEE SWAB CULTURE RESULTS AT 1530.
--- NOTE | 2023-01-11 16:12 | NUR ---
SUMMARY: PT IS POD 2 R KNEE I&D. A/O,VSS. PT REPORTS PAIN IS MANAGEMENT WITH TYLENOL. HEMOVAC REMOVED TODAY BY GIOVANNA FELIX, SURGICAL SITE WNL. PT SAW LIVESTOCK NUTRITION TERRITORY MANAGER TODAY WELL, SEE NOTES. DRESSINGS TO LLE ARE CDI. IV ANTIBIOTICS INFUSED THROUGH PICC. NOW AWAITING INFECTIOUS DISEASE CONSULT FROM TXISIDRO ARDON TO CALL. NO ACUTE CONCERNS AT THIS TIME.
[2023-01-11 19:04] LABS: Vancomycin, Random 18.1 ug/mL
[2023-01-11 19:37] VITALS: BP 134/63
[2023-01-12 03:22] VITALS: BP 135/60
--- NOTE | 2023-01-12 04:36 | NUR ---
SHIFT SUMMARY POD 3 I&D R KNEE W/ QUAD REPAIR PT ABLE TO REST T/O NIGHT. DENIES ANY PAIN. TOLERATING PO INTAKE, VOIDING, USING URINAL. NO BOWEL MOVEMENT. DRESSING TO KNEE AND LEGS ARE C/D/I. PT WORE CPAP T/O NIGHT, CONT BIOX ON. NO OTHER COCNERNS AT THIS TIME. CALL LIGHT KENNETH ELMORE.
[2023-01-12 07:22] VITALS: BP 148/72
--- NOTE | 2023-01-12 14:00 | NUR ---
Pt. is sitting up in a chair when he welcomes my visit. Pt. is pleasant but verbalized frustration about when he would get transferred to [facility]. During our visit Dr. Moran came and updated the Pt. with plans. Facilitated conversation where Pt. verbalized his expected future care plans. The Pt. had an incoming phone call, so this claims specialist excused himself. Pt. verbalized gratitude for the spiritual care visit.
[2023-01-12 14:25] VITALS: BP 164/75
--- NOTE | 2023-01-12 15:41 | NUR ---
reports called and given to paul. all questions answered. pt awaiting transport at this time.
--- NOTE | 2023-01-12 16:03 | NUR ---
DISCHARGE PT LEFT VIA GURNEY TO [facility]. ALL BELONGINGS SENT WITH PATIENT. DRESSING TO SURGICAL LEG CHANGED PRIOR TO DISCHARGE. CURRENTLY CDI. PT AMBULATING WELL USING WALKER. CONTINUES TO DENY PAIN AT THIS TIME. ALL BELONGINS WITH PATIENT OR SPOUSE. PICC LINE CAPS REPLACED THIS AM. PLAN IS FOR PATIENT TO HAVE IV ABX FOR 6 WEEKS AND BACK FOR A REVISION ON MONDAY.
== END 2023-01-12 16:01 | DRG 486 ==
LOC: ORSCMMR 09:45 → MEDS 09:46 → SURS 09:46 → ORSCMMR 09:46 → SURS 15:16 → ORD 01-10 15:00 → ORSCMMR 01-10 15:00 → SURS 01-11 21:41
PROVIDERS: Internal Medicine; ADMIT Orthopaedic Surgery
PROC: 0LDQ0ZZ Extraction of Right Knee Tendon, Open Approach (ICD-10-PCS; 2023-01-09)
PROC: 0S9C0ZZ Drainage of Right Knee Joint, Open Approach (ICD-10-PCS; principal; 2023-01-09 11:15)
DX: T84.53XA Infection and inflammatory reaction due to internal right knee prosthesis, initial encounter (principal); D84.821 Immunodeficiency due to drugs; M00.061 Staphylococcal arthritis, right knee; Z68.41 Body mass index [BMI] 40.0-44.9, adult; T81.32XA Disruption of internal operation (surgical) wound, not elsewhere classified, initial encounter; B95.61 Methicillin susceptible Staphylococcus aureus infection as the cause of diseases classified elsewhere; S76.111A Strain of right quadriceps muscle, fascia and tendon, initial encounter; W19.XXXA Unspecified fall, initial encounter; I10 Essential (primary) hypertension; G89.29 Other chronic pain; M54.9 Dorsalgia, unspecified; E78.5 Hyperlipidemia, unspecified; G47.33 Obstructive sleep apnea (adult) (pediatric); H40.9 Unspecified glaucoma; L40.9 Psoriasis, unspecified; G25.81 Restless legs syndrome; J30.9 Allergic rhinitis, unspecified; E66.01 Morbid (severe) obesity due to excess calories; T50.995A Adverse effect of other drugs, medicaments and biological substances, initial encounter; Y79.2 Prosthetic and other implants, materials and accessory orthopedic devices associated with adverse incidents; Z87.891 Personal history of nicotine dependence; Z96.641 Presence of right artificial hip joint; Z96.652 Presence of left artificial knee joint; Z98.1 Arthrodesis status; Z96.82 Presence of neurostimulator; Z88.8 Allergy status to other drugs, medicaments and biological substances; Z88.1 Allergy status to other antibiotic agents; Z79.899 Other long term (current) drug therapy; Z79.890 Hormone replacement therapy; Z79.620 Long term (current) use of immunosuppressive biologic; Z86.14 Personal history of Methicillin resistant Staphylococcus aureus infection
CPT/HCPCS: 36415; 73560-RT; 73700; 80048; 80202; 82565; 83735; 85025; 85651; 86140; 87070; 87075; 87077; 87147; 87186; 87205; 94660; 94762; 97110; 97162; 97530; A9270; J0690; J1100; J1170; J2060; J2371; J2405; J2704; J3010; J3370; J7050; J7120

== ENCOUNTER 2023-01-17 12:02 | Inpatient (IN) | payer MEDICARE, BC ==
[~2023-01-17] VITALS: Ht 177.8 cm; Wt 123.6 kg
[2023-01-17] VITALS (20 sets, daily range): BP systolic 80–153; BP diastolic 40–136
[~2023-01-17 12:02] MED LIST changes: +BUPRENORPHINE HC2 MG SL; +COSENTYX P150 MG/1 M SC; +FLUC200 PO; +FOLI1 PO; +METHOTREXATE2.510 PO; +MIRALAX11914 PO
[2023-01-17] MEDS ORDERED: Ropinirole HCl1 MG PO (13:11)
[2023-01-17] MEDS ORDERED: CEFAZOLIN2 GM/50 M3 IV (13:19)
--- NOTE | 2023-01-17 13:48 | NUR ---
PT HAS A PICC LINE IN [facility] THAT WAS PLACED HERE AT [facility] WHEN HE HAD HIS FIRST SURGERY ONE WEEK AGO FOR THIS R KNEE. THE DRESSING WAS CHANGED ON 01/15/23 AND IT SHOWS NO SIGNS OF INFILTRATION. NO REDNESS, SWELLING, INFLAMMATION, DRAINAGE NOTED.
[2023-01-17 22:02] LABS: Hemoglobin 7.3 g/dL (13.5-17.5)
--- NOTE | 2023-01-17 22:56 | NUR ---
POST OP PT ARRIVAL TO UNIT AT APPROX 2020 FROM PACU. AWAKE AND ORIENTED. S/P R KNEE REVISION. SPINAL ANESTHESIA WEARING OFF PT CAN WIGGLE TOES AND LIFT LEG. POLAR PACK TO R KNEE + ROSEY WRAP APPEARS CDI. PT APPEARED TO BE UNCOMFORTABLE R/T TO HIS HX OF RESTLESS LEGS STATING HE WAS HAVING LEG SPASMS. MEDICATED PER EMAR AND ALSO GIVEN TYLENOL + TORADOL FOR PAIN MANAGEMENT. PT ABLE TO TOLERATE SOLID FOOD FOR DINNER WITH NO COMPLAINTS. INITIALLY, POST OP VS STABLE. WITHIN THE HOUR, PT BECAME HYPOTENSIVE AND HYPOXIC AND APPEARED PALE IN COLOR AND WAS SOMNOLENT. WAS ABLE TO OPEN EYES TO VERBAL STIMULI AND ONLY SLOWLY SAY YES OR NO WHILE ANSWERING QUESTIONS. HEAD OF BED LOWERED TO SUPINE POSITION, 3L 02 VIA NC PLACED PT WAS DESATTING TO LOW 70s, RT NOTIFIED TO HELP ASSIST WITH CPAP PLACEMENT AND O2 BLEED IN. CONT BIOX IN PLACE. CONSTRUCTION TRENCH DIGGER NOTIFIED AND CALLED ORTHO DOC AND OBTAINED HOSPITALIST CONSULT. HOSPITALIST AT BEDSIDE AT APPROX 2140. ORDERS FOR FLUID BOLUS AND LABS OBTAINED. BOLUS INFUSING PER ORDERS AND PT VS IMPROVING AND PT LESS SOMNOLENT. CONTINUING TO MONITOR CLOSELY.
[2023-01-18] VITALS (9 sets, daily range): BP systolic 100–257; BP diastolic 40–621
[2023-01-18 05:25] LABS: BASOPHILS ABSOLUTE AUTO 0.02 K/mm3 (0.00-0.23); BASOPHILS PERCENT AUTO 0 % (0-2); EOSINOPHILS ABSOLUTE AUTO 0.16 K/mm3 (0.00-0.68); EOSINOPHILS PERCENT AUTO 2 % (0-6); Hematocrit 21.5 % (37.0-53.0); Hemoglobin 6.7 g/dL (13.5-17.5); IMMATURE GRAN ABSOLUTE AUTO 0.05 K/mm3 (0.00-0.10); IMMATURE GRAN PERCENT AUTO 1 % (0-1); LYMPHOCYTES ABSOLUTE AUTO 1.21 K/mm3 (0.84-5.20); LYMPHOCYTES PERCENT AUTO 14 % (21-46); MONOCYTES ABSOLUTE AUTO 0.78 K/mm3 (0.16-1.47); MONOCYTES PERCENT AUTO 9 % (4-13); Mean Corpuscular HGB Conc 31.2 g/dL (31.5-36.5); Mean Corpuscular Volume 93 fL (80-100); Mean Platelet Volume 9.1 fL (9.1-12.4); NEUTROPHILS ABSOLUTE AUTO 6.45 K/mm3 (1.96-9.15); NEUTROPHILS PERCENT AUTO 74 % (41-73); Platelet Count 172 K/mm3 (150-400); RDW Coefficient Variation 15.1 % (11.7-14.2); RDW Standard Deviation 50.8 fL (35.1-46.3); Red Blood Cell Count 2.31 M/mm3 (4.30-5.90); White Blood Cell Count 8.67 K/mm3 (4.00-11.30)
--- NOTE | 2023-01-18 05:31 | NUR ---
SHIFT SUMMARY S/P R KNEE REVISION. PT DOING MUCH BETTER AFTER FLUID BOLUS. AWAKENS EASILY AND ABLE TO ANSWER QUESTIONS APPROPRIATELY. VITALS STABLE. ABLE TO DANGLE AND STAND AT BEDSIDE TO ATTEMPT TO VOID. UNABLE TO VOID, BUT BLADDER SCAN <250 CC. ROSEY WRAP TO R KNEE REMAINS CDI WITH POLAR PACK IN PLACE. IVF + ABX PER ORDERS. TORADOL + TYLENOL FOR PAIN MANAGEMENT. H+H DID DECREASE, ORDERS FOR 1 UNIT PRBC TO TRANSFUSE. USES CALL LIGHT APPROPRIATELY.
[2023-01-18 05:54] LABS: Bun/Creatinine Ratio 28.1 (12.0-20.0); Calcium, Blood 7.8 mg/dL (8.5-10.1); Creatinine, Blood 0.78 mg/dL (0.60-1.20)
--- NOTE | 2023-01-18 10:58 | NUR ---
PT HYPERTENSIVE BP 257/235. HR 60. PT ASYMPTOMATIC. BS 113. REC'D SCHEDULED LISINOPRIL. PT SITTING IN RECLINER W/LEGS ELEVATED. PLACED MSG OUT TO PROVIDER TO CALL.
--- NOTE | 2023-01-18 17:31 | NUR ---
SUMMARY PT REC'D 1 UNIT PRBCS THIS SHIFT. TOLERATED WELL. PRIOR TO ADMINISTERING BLOOD, PT SAT UP ON EDGE OF BED AND TRANSFERRED TO RECLINER W/MOD ASSIST USING FWW AND GAIT BELT. UPON TAKING VSS, FOUND TO BE HYPERTENSIVE IN 200S,USING MULITPLE SITES AND CUFFS. OBTAINED HOSPITALIST CONSULT AND NOTIFIED DR ZENDEJAS. WHEN DR ZENDEJAS SAW PT, BP RECHECKED (PT HAD BEEN SITTING UP IN RECLINER FOR APPROXIMATELY 30 MINUTES) AND BP HAD IMPROVED TO 100/40. VSS HAVE BEEN STABLE SINCE. PT HAS SAT UP IN RECLINER T/O DAY. PAIN CONTROLLED PER EMAR. PT HAS VOIDED WELL T/O DAY. CALL LIGHT IN REACH.
[2023-01-19 02:54] VITALS: BP 119/64
[2023-01-19 05:26] LABS: BASOPHILS ABSOLUTE AUTO 0.02 K/mm3 (0.00-0.23); BASOPHILS PERCENT AUTO 0 % (0-2); EOSINOPHILS ABSOLUTE AUTO 0.23 K/mm3 (0.00-0.68); EOSINOPHILS PERCENT AUTO 4 % (0-6); Hemoglobin 7.2 g/dL (13.5-17.5); IMMATURE GRAN ABSOLUTE AUTO 0.04 K/mm3 (0.00-0.10); IMMATURE GRAN PERCENT AUTO 1 % (0-1); LYMPHOCYTES ABSOLUTE AUTO 1.19 K/mm3 (0.84-5.20); LYMPHOCYTES PERCENT AUTO 20 % (21-46); MONOCYTES ABSOLUTE AUTO 0.47 K/mm3 (0.16-1.47); MONOCYTES PERCENT AUTO 8 % (4-13); Mean Corpuscular HGB 29.8 pg (26.0-34.0); Mean Corpuscular HGB Conc 32.7 g/dL (31.5-36.5); Mean Corpuscular Volume 91 fL (80-100); NEUTROPHILS ABSOLUTE AUTO 3.95 K/mm3 (1.96-9.15); NEUTROPHILS PERCENT AUTO 67 % (41-73); Platelet Count 139 K/mm3 (150-400); RDW Coefficient Variation 15.5 % (11.7-14.2); RDW Standard Deviation 50.2 fL (35.1-46.3); Red Blood Cell Count 2.42 M/mm3 (4.30-5.90)
[2023-01-19 05:54] LABS: Bun/Creatinine Ratio 22.6 (12.0-20.0); Calcium, Blood 7.9 mg/dL (8.5-10.1); Creatinine, Blood 0.71 mg/dL (0.60-1.20); Potassium, Blood 3.7 mmol/L (3.5-5.5)
--- NOTE | 2023-01-19 06:20 | NUR ---
SHIFT SUMMARY POD 2 R TOTAL KNEE REVISION. NO ACUTE CHANGES OVERNIGHT. VS WNL FOR PT, BIOX IN USE. ROSEY WRAP C/D/I, POLAR PACK IN PLACE. TOLERATING ORALS. PT USES CPAP AT NIGHT, MODERATELY COMPLIANT. PT HAS NOT AMBULATED THIS SHIFT. PT SLEPT IN RECLINER OVERNIGHT, PT REFUSED REPOSITIONING THROUGHOUT THE NIGHT. TOILETS INDEPENDENTLY USING URINAL. PT REPORTS PAIN TOLERABLE, MEDICATED PER EMAR. CALL LIGHT WITHIN REACH, WILL REPORT TO DAY RN.
[2023-01-19 07:24] VITALS: BP 176/74
[2023-01-19] MEDS ORDERED: COENZYME Q-1050 MG PO (12:45)
[2023-01-19] MEDS ORDERED: FOLI1 PO (12:46)
[2023-01-19] MEDS ORDERED: RIFA150 PO (12:54)
[2023-01-19] MEDS ORDERED: XARELTO10 M1 PO (12:55)
[2023-01-19 15:15] VITALS: BP 156/73
--- NOTE | 2023-01-19 16:30 | NUR ---
DISCHARGE PT A&OX4, VSS/RA, KRISTOPHER PO, VOIDING, AMB SBA FWW/GB - UP TO CHAIR T/O SHIFT - PHYSICAL THERAPY EVAL'D, AQUACEL DRESSING APPLIED, PAIN MANAGED ON BASELINE MED, PICC LINE KT, APPLICATIONS SYSTEM ANALYST HERE FOR TRAINING PT/SPOUSE FOR HOME ABX. DC INS PROVIDED. PT AND SPOUSE REP UNDERSTANDING THOSE INS. LEFT FLOOR VIA WC WITH ALL PERSONAL POSSESSIONS.
== END 2023-01-19 17:42 | disposition home health service (06) | DRG 467 ==
LOC: SURS 12:02 → ORSCMMR 12:02 → ORD 13:30 → ORSCMMR 13:30 → SURS 20:25 → ORSCMMR 21:00 → SURS 01-18 18:49
PROVIDERS: Internal Medicine; ADMIT Orthopaedic Surgery
PROC: 0SHC08Z Insertion of Spacer into Right Knee Joint, Open Approach (ICD-10-PCS; 2023-01-17)
PROC: 3E0U029 Introduction of Other Anti-infective into Joints, Open Approach (ICD-10-PCS; 2023-01-17)
PROC: 5A09357 Assistance with Respiratory Ventilation, Less than 24 Consecutive Hours, Continuous Positive Airway Pressure (ICD-10-PCS; 2023-01-17)
PROC: 02H633Z Insertion of Infusion Device into Right Atrium, Percutaneous Approach (ICD-10-PCS; 2023-01-17)
PROC: 0SWC0JZ Revision of Synthetic Substitute in Right Knee Joint, Open Approach (ICD-10-PCS; principal; 2023-01-17 13:30)
PROC: 30233N1 Transfusion of Nonautologous Red Blood Cells into Peripheral Vein, Percutaneous Approach (ICD-10-PCS; 2023-01-18)
DX: T84.53XA Infection and inflammatory reaction due to internal right knee prosthesis, initial encounter (principal); D62 Acute posthemorrhagic anemia; Z68.41 Body mass index [BMI] 40.0-44.9, adult; Y83.8 Other surgical procedures as the cause of abnormal reaction of the patient, or of later complication, without mention of misadventure at the time of the procedure; E78.5 Hyperlipidemia, unspecified; E03.9 Hypothyroidism, unspecified; G47.33 Obstructive sleep apnea (adult) (pediatric); G89.29 Other chronic pain; L40.9 Psoriasis, unspecified; B95.61 Methicillin susceptible Staphylococcus aureus infection as the cause of diseases classified elsewhere; Z87.891 Personal history of nicotine dependence; I10 Essential (primary) hypertension; M54.9 Dorsalgia, unspecified; G25.81 Restless legs syndrome; E66.01 Morbid (severe) obesity due to excess calories; H40.9 Unspecified glaucoma; I95.81 Postprocedural hypotension; M19.90 Unspecified osteoarthritis, unspecified site; Z96.653 Presence of artificial knee joint, bilateral; Z96.641 Presence of right artificial hip joint; Z98.890 Other specified postprocedural states; Z88.1 Allergy status to other antibiotic agents; Z90.89 Acquired absence of other organs; Z98.1 Arthrodesis status; Z88.8 Allergy status to other drugs, medicaments and biological substances; Z91.048 Other nonmedicinal substance allergy status; Z79.899 Other long term (current) drug therapy; Z79.811 Long term (current) use of aromatase inhibitors
CPT/HCPCS: 36415; 36430; 73560-RT; 80048; 85014; 85018; 85025; 86850; 86900; 86901; 86923; 87040; 87070; 87075; 87205; 94660; 94762; 97110; 97116; 97162; A9270; C1713; C1776; J0171; J0690; J0735; J1100; J1580; J1885; J2250; J2270; J2405; J2704; J2795; J3010; J3370; J7030; J7040; J7050; J7120; P9016

== ENCOUNTER 2023-01-22 10:33 | Emergency (ER) | payer MEDICARE, BC ==
[~2023-01-22] VITALS: Ht 188 cm; Wt 86.2 kg
[~2023-01-22 10:33] MED LIST changes: +CEFAZOLIN2 GM/50 M3 IV; +COENZYME Q-1050 MG PO; +RIFA150 PO; +Ropinirole HCl1 MG PO; +XARELTO10 M1 PO
[2023-01-22 10:54] VITALS: BP 147/77
[2023-01-22] MEDS ORDERED: XARELTO10 M3 PO (11:10)
[2023-01-22] MEDS ORDERED: RIFA150 PO (11:10)
== END 2023-01-22 11:25 | disposition home or self-care (01) ==
LOC: ER 10:33
DX: M96.89 Other intraoperative and postprocedural complications and disorders of the musculoskeletal system (principal); Y83.8 Other surgical procedures as the cause of abnormal reaction of the patient, or of later complication, without mention of misadventure at the time of the procedure; Z87.891 Personal history of nicotine dependence; Z96.651 Presence of right artificial knee joint
CPT/HCPCS: 99283; A9270

== ENCOUNTER → 2023-01-25 | Outpatient (CLI) | payer MEDICARE, BC ==
[~2023-01-25] MED LIST changes: +XARELTO10 M3 PO
[2023-01-25 19:36] LABS: Hematocrit 26.7 % (37.0-53.0); Hemoglobin 8.5 g/dL (13.5-17.5); Mean Corpuscular HGB 29.2 pg (26.0-34.0); Mean Corpuscular HGB Conc 31.8 g/dL (31.5-36.5); Mean Corpuscular Volume 92 fL (80-100); Mean Platelet Volume 9.1 fL (9.1-12.4); Platelet Count 286 K/mm3 (150-400); RDW Standard Deviation 52.6 fL (35.1-46.3); Red Blood Cell Count 2.91 M/mm3 (4.30-5.90); White Blood Cell Count 9.35 K/mm3 (4.00-11.30)
[2023-01-25 20:50] LABS: Albumin, Blood 2.2 g/dL (3.4-5.0); Albumin/Globulin Ratio 0.5 (0.8-1.8); Bilirubin, Direct 0.2 mg/dL (0.0-0.3); Bilirubin, Indirect 0.3 mg/dL (0.1-0.7); Bilirubin, Total 0.5 mg/dL (0.1-1.0); Creatinine, Blood 0.65 mg/dL (0.60-1.20); Globulin, Blood 4.5 g/dL (2.2-4.0); Total Protein, Blood 6.7 g/dL (6.4-8.2)
== END | disposition home or self-care (01) ==
LOC: LAB SHORT 12:57 → LAB 12:57
PROVIDERS: Physician Assistant Surgical
DX: T84.53XD Infection and inflammatory reaction due to internal right knee prosthesis, subsequent encounter (principal); Z79.2 Long term (current) use of antibiotics
CPT/HCPCS: 80076; 82565; 85027

== ENCOUNTER 2023-01-26 19:24 | Inpatient (IN) | payer MEDICARE, BC ==
[~2023-01-26] VITALS: Ht 177.8 cm; Wt 122.9 kg
[2023-01-26 19:56] LABS: BASOPHILS ABSOLUTE AUTO 0.04 K/mm3 (0.00-0.23); BASOPHILS PERCENT AUTO 1 % (0-2); EOSINOPHILS ABSOLUTE AUTO 0.27 K/mm3 (0.00-0.68); EOSINOPHILS PERCENT AUTO 3 % (0-6); Hematocrit 28.3 % (37.0-53.0); Hemoglobin 9.1 g/dL (13.5-17.5); IMMATURE GRAN ABSOLUTE AUTO 0.06 K/mm3 (0.00-0.10); IMMATURE GRAN PERCENT AUTO 1 % (0-1); LYMPHOCYTES ABSOLUTE AUTO 1.24 K/mm3 (0.84-5.20); LYMPHOCYTES PERCENT AUTO 14 % (21-46); MONOCYTES PERCENT AUTO 7 % (4-13); Mean Corpuscular HGB 29.3 pg (26.0-34.0); Mean Corpuscular HGB Conc 32.2 g/dL (31.5-36.5); Mean Corpuscular Volume 91 fL (80-100); Mean Platelet Volume 8.4 fL (9.1-12.4); NEUTROPHILS ABSOLUTE AUTO 6.42 K/mm3 (1.96-9.15); NEUTROPHILS PERCENT AUTO 74 % (41-73); Platelet Count 306 K/mm3 (150-400); RDW Coefficient Variation 16.1 % (11.7-14.2); RDW Standard Deviation 51.8 fL (35.1-46.3); Red Blood Cell Count 3.11 M/mm3 (4.30-5.90); White Blood Cell Count 8.63 K/mm3 (4.00-11.30)
[2023-01-26 21:22] LABS: Albumin, Blood 2.3 g/dL (3.4-5.0); Albumin/Globulin Ratio 0.5 (0.8-1.8); Bilirubin, Total 0.5 mg/dL (0.1-1.0); Bun/Creatinine Ratio 26.2 (12.0-20.0); Calcium, Blood 8.1 mg/dL (8.5-10.1); Creatinine, Blood 0.65 mg/dL (0.60-1.20); Globulin, Blood 4.5 g/dL (2.2-4.0); Potassium, Blood 3.6 mmol/L (3.5-5.5); Total Protein, Blood 6.8 g/dL (6.4-8.2)
[2023-01-26 22:40] LABS: Calcium, Ionized (POC) 1.05 mmol/L (1.10-1.46); Chloride (POC) 95 mmol/L (98-108); Glucose (ISTAT POC) 164 mg/dL (70-99); Hemoglobin (POC) 10.5 g/dL (13.5-17.5); Potassium (POC) 3.5 mmol/L (3.5-5.5); Sodium (POC) 132 mmol/L (135-148); Total CO2 (POC) 26 mmol/L (21-32)
[2023-01-27] VITALS (56 sets, daily range): BP systolic 80–139; BP diastolic 34–89
[2023-01-27 04:02] LABS: Hematocrit 27.9 % (37.0-53.0); Mean Corpuscular HGB 29.3 pg (26.0-34.0); Mean Corpuscular HGB Conc 32.3 g/dL (31.5-36.5); Mean Corpuscular Volume 91 fL (80-100); Mean Platelet Volume 8.5 fL (9.1-12.4); Platelet Count 322 K/mm3 (150-400); RDW Coefficient Variation 16.2 % (11.7-14.2); RDW Standard Deviation 51.9 fL (35.1-46.3); Red Blood Cell Count 3.07 M/mm3 (4.30-5.90); White Blood Cell Count 13.39 K/mm3 (4.00-11.30)
[2023-01-27 04:27] LABS: Albumin, Blood 2.1 g/dL (3.4-5.0); Albumin/Globulin Ratio 0.5 (0.8-1.8); Bilirubin, Total 0.5 mg/dL (0.1-1.0); Bun/Creatinine Ratio 16.5 (12.0-20.0); Calcium, Blood 7.4 mg/dL (8.5-10.1); Creatinine, Blood 1.21 mg/dL (0.60-1.20); Globulin, Blood 3.9 g/dL (2.2-4.0); Potassium, Blood 3.7 mmol/L (3.5-5.5)
[2023-01-27 04:45] LABS: BAND PERCENT MAN 29 % (0-8); BASOPHILS PERCENT MAN 0 % (0-2); EOSINOPHILS PERCENT MAN 0 % (0-6); LYMPHOCYTES PERCENT MAN 3 % (21-46); MONOCYTES PERCENT MAN 3 % (4-13); NEUTROPHILS ABSOLUTE MAN 12.58 K/mm3 (1.96-9.15); SEG NEUTROPHILS PERCENT MAN 65 % (41-73); TOTAL CELLS COUNTED 100
--- NOTE | 2023-01-27 05:34 | NUR ---
ASSUMPTION OF CARE AND ICU TRANSFER ASSUMED CARE OF PT AT 0150. PT IS A/OX4. HEART SOUNDS REGULAR. LUNG SOUNDS DIMINISHED, PT ON 2L NC TO REMAIN IN 95% AND ABOVE. PT ABD WAS SEVERLY DISTENDED FIRM AND PAINFUL. PT HAD R KNEE AQUALCEAL DRESSING AND CANDIS IN R FEMUR. PICTURES IN CHART. PT ABLE TO GET FROM ER BED TO ROOM BED WITH A 2P STAND PIVOT. NG TUBE WAS IN PT MOUTH. TUBE RE INSERTED AND CXR ORDERED TO CHECK REPOSITION. HOSPITALIST NOTIFIED THIS NURSE THAT CXR WAS GOOD. PT BP UPON ARRIVAL WAS SOFT. PT PAIN UNCONTROLLED. HOSPITALIST NOTIFIED AND CAME TO ROOM. PT RECEIVED 500 BOLUS AND 1 OF DILAUDID AFTER REVEWING CHART. PT BP CONTINUED TO DECREASE. PT ASYMTOMATIC. HOSPIALIST NOTIFIED SURGEON WHO AGREED PT NEEDED EMERGENT SURGERY. PT TRANSFERED TO ICU FOR LEVOPHED GTT UNTIL OR TEAM ARRIVED. REPORT GIVEN AT BEDSIDE TO MALIK RN AND LEATHA RN.
[2023-01-27 06:15] LABS: Source, Urine Foley catheter
--- NOTE | 2023-01-27 06:19 | NUR ---
TRANSFER PT TRANSFERED TO ICU 13 FROM PCU AT 0520. ARRIVED VIA BED. TRANSFERED TO ICU BED WITH SLIDER SHEET BY STAFF. PT AWAKE A&O. C/O ABD PAIN. PT STARTED ON LEVOPHED AT 1 MCQ/MIN AND TITRATED UP TO 2 MCQ/MIN. DR ARRIAGA INTO SEE PT. BYRD CATH COUDE 14 FR PLACED WITH DIFFICULTY. FLUID BOLUS COMPLETE NS AT 75 ML/HR. PROTONIX GTT INFUSING. PT TO GO TO SURGERY THIS AM. DR ARRIAGA LEFT MESSAGE FOR . EKG BEING DONE NOW
[2023-01-27 06:26] LABS: Appearance, Urine Clear (Clear); Bilirubin, Urine Neg (Neg); Blood, Urine 5+ (Neg); Color, Urine Yellow (P-Yellow); Glucose Qualitative, Urine Neg (Neg); Ketones, Urine Neg (Neg); Leukocyte Esterase, Urine Neg (Neg); Nitrite, Urine Neg (Neg); Protein, Urine 2+ (Neg); Urobilinogen, Urine NORM (Normal)
--- NOTE | 2023-01-27 06:40 | NUR ---
PT TO SURGERY WITH DR BISHOP. ON LEVOPHED AT 2 MCQ/MIN. REPORT TO ON COMING NURSE.
[2023-01-27 06:49] LABS: Bacteria Mod /hpf; Squamous Epithelial Cells Few /hpf (Few); White Blood Cells, Urine 0-2 /hpf (0-5)
--- NOTE | 2023-01-27 10:49 | NUR ---
Assumed care of pt on arrival to ICU 13 at 0838 from OR. Report received from ICU night ROJAS Torrez. Bedside report received from OR nurse and Dr Coelho. Dr Crowley at bedside shortly afterwards. Pt arrived on 5 LPM NC with sats in high 90s. Decreased to 2 LPM NC. Sats remained in high 90s. Titrated to room air and sats are currently 94%. SR per monitor. BP stable initially, but then pt required levophed to be restarted. Currently at 2 mcg/min. A&O x 4. Answers questions, follows commands, verbalizes needs. Pleasant and cooperative with care. Spouse at bedside this AM. Update given.
--- NOTE | 2023-01-27 18:31 | NUR ---
SUMMARY Neuro/Musc/Psychosocial: A&O x 4. Answers questions, follows commands, verbalizes needs. Pleasant and cooperative with care. Able to perform oral care independently and able to assist with L/R repositioning, however pt prefers to hug pillow against abdominal incision when being repositioned. Pt wanted to get OOB this shift. Assisted pt to sit on edge of bed; he tolerated this well. Able to stand for approx 15 seconds using walker and 1 person max assist. Pt states his limitation is due to weakness, not lightheadedness or dizziness. Assisted back to bed and used ceiling lift to transfer patient to recliner. Pt states he sleeps in a recliner normally. Resp: Pt is currently on room air. Respirations are shallow. RR less than 20. Home CPAP at bedside and has been reviewed by RT Carlson. Incentive spirometer at bedside. Pt was highly familiar with device and was able to state why using it is important and demonstrated correct usage. Pt has been using device independently in room. Cardiac: SR per monitor. Additional bolus of NS given this shift and levophed was successfully turned off afterwards. GI: NG to LIS. Small amount of clear/brown drainage this shift. Abd highly tender and pain out of proportion to RUQ with gentle touch- this was discussed with Dr Crowely and he stated this was an expected finding. 100 mL of serosanguinous drainage to 19FR ericka drain to RUQ. : Good urine output into henson catheter. Skin: Unchanged from initial assessment. Psychosocial: Pt's spouse presented to bedside twice this shift. Update provided.
--- NOTE | 2023-01-27 23:30 | NUR ---
Pt care assumed at 1900. He is currently sitting up in the chair sleeping. He is easy to arouse and responds to questions appropriatly. Pt states that he has continued pain but has been well managed with the fentanyl. Pt is currently on room air. Heart rate and blood pressure stable. He denies any n/v. He states that he would like to sleep in the chair. He has been able to shift and reposition himself in the chair, but c/o continued discomfort. I assisted him in repositioning.
[2023-01-28] VITALS (13 sets, daily range): BP systolic 100–185; BP diastolic 61–113
[2023-01-28 04:50] LABS: Hematocrit 24.3 % (37.0-53.0); Hemoglobin 7.8 g/dL (13.5-17.5); Mean Corpuscular HGB 29.2 pg (26.0-34.0); Mean Corpuscular HGB Conc 32.1 g/dL (31.5-36.5); Mean Corpuscular Volume 91 fL (80-100); Mean Platelet Volume 8.6 fL (9.1-12.4); Platelet Count 276 K/mm3 (150-400); RDW Coefficient Variation 17.1 % (11.7-14.2); RDW Standard Deviation 54.4 fL (35.1-46.3); Red Blood Cell Count 2.67 M/mm3 (4.30-5.90); White Blood Cell Count 17.47 K/mm3 (4.00-11.30)
[2023-01-28 05:13] LABS: Bun/Creatinine Ratio 8.1 (12.0-20.0); Calcium, Blood 7.2 mg/dL (8.5-10.1); Creatinine, Blood 0.74 mg/dL (0.60-1.20); Potassium, Blood 3.6 mmol/L (3.5-5.5)
--- NOTE | 2023-01-28 06:43 | NUR ---
END OF SHIFT: PT RESTING COMFORTABLY IN THE CHAIR. HE STATES THAT HE IS FEELING BETTER. HIS MAIN COMPLAINT IS RESTLESS LEGS. HE HAS BEEN GETTING 1MG ATIVAN Q6, BUT HAS NOT IMPROVED. PT STATES THAT PAIN HAS IMPROVED AND HIS STRENGTH AND MOBILITY ARE IMPROVING. HE IS REQUESTING A PHYSICAL THERAPY CONSULT. VITAL SIGNS HAVE BEEN STABLE. HE IS CURRENTLY ON 1L NC.
--- NOTE | 2023-01-28 07:15 | NUR ---
ASSUMED CARE OF PT @ 0700. BEDSIDE REPORT RECEIVED FROM [facility] NURS[facility]. PT A&OX4, AMBULATED WITH WALKER AND MODERATE ASSISTANCE TO BEDSIDE COMMODE, NO BM. BECAME MILDLY SOB AND OBVIOUSLY WEAK WHILE STANDING, DENIED SEVERE PAIN THE LIMITING FACTOR. PT IS C/O MODERATE PAIN IN ABDOMEN AND RESTLESS LEGS, MEDICATING WITH PRN ATIVAN FOR THE LEGS AND FENTANYL FOR PAIN. NG TO LIS, LIGHT BROWN LIQUID OUT. PT NPO OTHER THAN SMALL SIPS OF WARM WATER PER PT REQUEST & OK'D BY SODER. ABDOMEN TENDER, MIDLINE INCISION WITH SCANT DRAINAGE, CRISTY DRAINING SS FLUID. BYRD CATH PATENT, DRAINING RUPESH URINE. CALL LIGHT IN REACH, PT SITTING IN BEDSIDE CHAIR.
[2023-01-28 08:22] LABS: Percent Saturation 7.1 % (20.0-50.0)
--- NOTE | 2023-01-28 17:50 | NUR ---
SHIFT SUMMARY PT REMAINS A&OX4, FOLLOWING COMMANDS, SAURABH. WORKED WITH PHYSICAL THERAPY THIS AFTERNOON, DID BETTER STANDING AND TRANSFERRING IN THE AM, UNABLE TO FULLY STAND UPRIGHT BUT DID MULTIPLE UP AND DOWN REPS. OGT TO LIS. BYRD CATHETER DC'D THIS AFTERNOON, PT URINATING WITHOUT DIFFICULTY. NO CHANGES TO EVELIN DRESSING & CRISTY. EVELIN DRESSING APPLIED TO KNEE WOUND PER DR AYALA DUE TO INCREASED EXUDATE. NO OTHER ACUTE CHANGES.
[2023-01-29] VITALS (10 sets, daily range): BP systolic 139–182; BP diastolic 69–127
--- NOTE | 2023-01-29 01:39 | NUR ---
ASSUMED CARE ASSUMED CARE AT 1900. PT A/O X 4. PLEASANT AND COOPERATIVE WITH CARE. PT IN CHAIR AND STATES HE SLEEPS IN A RECLINER AT HOME WELL. DECLINED SCD'S. NO TELE. VSS. HTN WITH SBP 160'S. CALL TO HOSP REGARDING BP. ORDERS RECEIVED. AFTER MEDICATION VERIFIED BY PHARM PT BP DOWN TO SBP 140'S. MEDICATION HELD. 2L NC AT NIGHT D/T SLEEP APNEA AND PT BEING UNABLE TO WEAR CPAP WITH NGT. NG TO LIS. EVELIN DRAIN TO R KNEE AND ABD. CRISTY IN PLACE TO ABD. PT DECLINED TO HAVE PILLOWS UNDER HIM. PT MOVES AROUND FREQUENTLY, HAVING FEET UP/DOWN AND SHIFTING WEIGHT. ATIVAN GIVEN FOR RESTLESS LEGS AND FENTANYL GIVEN FOR PAIN IN ABD. MEPILEX PLACED TO RIGHT HEEL. NPO EXCEPT SIPS OF WARM WATER. USES URINAL IN CHAIR. CALL LIGHT IN REACH.
[2023-01-29 04:37] LABS: Hematocrit 23.2 % (37.0-53.0); Hemoglobin 7.3 g/dL (13.5-17.5); Mean Corpuscular HGB 29.1 pg (26.0-34.0); Mean Corpuscular HGB Conc 31.5 g/dL (31.5-36.5); Mean Corpuscular Volume 92 fL (80-100); Mean Platelet Volume 8.3 fL (9.1-12.4); Platelet Count 237 K/mm3 (150-400); RDW Coefficient Variation 16.9 % (11.7-14.2); RDW Standard Deviation 56.4 fL (35.1-46.3); Red Blood Cell Count 2.51 M/mm3 (4.30-5.90); White Blood Cell Count 14.59 K/mm3 (4.00-11.30)
[2023-01-29 05:02] LABS: Bun/Creatinine Ratio 19.6 (12.0-20.0); Calcium, Blood 7.4 mg/dL (8.5-10.1); Creatinine, Blood 0.97 mg/dL (0.60-1.20); Potassium, Blood 3.2 mmol/L (3.5-5.5)
--- NOTE | 2023-01-29 06:31 | NUR ---
SHIFT SUMMARY NO ACUTE EVENTS T/O NIGHT. VSS. HTN AT TIMES. VOIDED USING URINAL IN CHAIR. CALL TO HOSP REGARDING AM LABS. ORDERS RECEIVED. DAUGHTER CALLED AND TRANSFERRED IN TO PT THIS AM TO TALK TO HIM. WILL REPORT OFF TO ONCOMING RN.
--- NOTE | 2023-01-29 10:02 | NUR ---
SHIFT ASSESSMENT ASSUMED CARE OF PT @ 0700, BEDSIDE REPORT RECIEVED FROM NOC NURSE. PT A&OX4, FOLLOWING COMMANDS, WILEY. STATES HE IS FEELING MUCH BETTER. OVERALL PTS COLOR IS MUCH IMPROVED. STILL REMAINS WEAK, DID NOT GET UP DURING THE NIGHT. PLAN TO WORK WITH PHYSICAL THERAPY TODAY. DOES STILL C/O ABDOMINAL PAIN, MEDICATING WITH PRN PAIN MEDS. EVELIN DRESSING WITH SCANT DRAINAGE TO DRESSING, CRISTY WITH SS DRAINAGE AND EVELIN TO KNEE DRESSING INTACT, SCANT DRAINAGE THROUGH DRESSING. NO OTHER ACUTE CHANGES.
--- NOTE | 2023-01-29 15:12 | NUR ---
REPORT GIVEN TO MARISOL XIE.
--- NOTE | 2023-01-29 15:18 | NUR ---
CARE ASSUMED OF KARLEE, HE WAS WORKING WITH PHYSICAL THERAPY. HE WAS ABLE TO STAND AT THE CHAIR USING THE WALKER AND LIFT HIS LEGS LIKE HE WAS MARCHING. HE HAS NGT TO LIS WITH GREEN/BROWN RETURN. CRISTY FROM RIGHT LOWER QUADRANT WITH RED THIN LIQUID RETURN. MIDLINE INCISION TO ABDOMEN WITH EVELIN, DRESSING TO THE RIGHT KNEE AND RIGHT CANO. PT WITH CONTINUOUS RESTLESS LEG, MEDICATED WITH ATIVAN PER PT REQUEST. IV TKO INFUSING WITH THE ANTIBIOTIC INTO THE RIGHT UPPER ARM PICC, LEFT AC WITH PIV. KARLEE IS ABLE TO MAKE HIS NEEDS KNOWN, USING THE CALL LIGHT APPROPRIATELY.
--- NOTE | 2023-01-29 16:01 | NUR ---
KARLEE REMAINS SITTING UP IN THE RECLINER, CURRENTLY USING HIS LAPTOP.
--- NOTE | 2023-01-29 16:47 | NUR ---
KARLEE IS UP TO THE BSC, SBA WITH USE OF WALKER. STATES HAVING QUITE A BIT OF FLATULENCE. NGT CONTINUES WITH GREEN/BROWN RETURN.
--- NOTE | 2023-01-29 18:08 | NUR ---
KARLEE HAS BEEN IN THE RECLINER, HE HAS NGT TO LIS WITH GREEN/BROWN RETURN, ABOUT 300ML THIS SHIFT. HE IS TAKING IN SIPS OF WARM WATER TO HELP ALLEVIATE THE DISCOMFORT IN HIS TONGUE. THE TONGUE HAS CREVICE AND OPEN AREA TO THE FRONT AND RIGHT PORTION OF MOST OF THE FRONT HALF. HE STATES THIS IS ONGOING X SEVERAL YEARS. HE CONTINUES WITH THE CRISTY DRAIN WITH RED LIQUID RETURN, MIDLINE ABD DRESSING, RIGHT KNEE AND CANO DRESSING. HE WAS ABLE TO STAND WITH P/T AND DO MARCHING LEGS, THEN MOVE TO THE [facility] AND HAVE A BM. HE USES THE [employer] INDEPENDENTLY. HAS BEEN ON HIS PHONE AND COMPUTER. HE HAS BEEN MEDICATED WITH ATIVAN FOR THE RESTLESS LEGS AND FENTANYL FOR THE SURGICAL PAIN. HE IS KIND AND COOPERATIVE WITH HIS CARE, LETTING HIS NEEDS BE KNOWN.
[2023-01-30] VITALS: BP 148/61
--- NOTE | 2023-01-30 00:12 | NUR ---
PT CRISTY DRAIN NOTED TO HAVE UNWOUND TUBING AND APPEARS TO BE NOT IN PLACE. CRISTY BULB WILL NOT COMPRESS. CRISTY INSERTION SITE WAS REDRESSED. I SPOKE TO DR ARRIAGA AND HE INSTRUCTED TO PUT A DRESSING ON IT AND HE WILL ASSESS IT TOMORROW.
[2023-01-30 03:16] VITALS: BP 160/70
--- NOTE | 2023-01-30 03:25 | NUR ---
REPORT CALLED SHAUNA COLINDRES RN. PT TRANSFERRED VIA WHEELCHAIR W/ALL BELONGINGS TO ROOM 228. PT IS ALERT AND ORIENTED W/NO S/S OF ACUTE DISTRESS NOTED AT TIME OF TRANSFER.
[2023-01-30 04:46] LABS: Bun/Creatinine Ratio 18.9 (12.0-20.0); Calcium, Blood 7.6 mg/dL (8.5-10.1); Creatinine, Blood 0.95 mg/dL (0.60-1.20); Magnesium, Blood 1.9 mg/dL (1.6-2.4); Potassium, Blood 3.4 mmol/L (3.5-5.5)
[2023-01-30 07:43] VITALS: BP 153/76
--- NOTE | 2023-01-30 07:54 | NUR ---
PT TRANSFERRED FROM ICU THIS AM.L AC IV DCD DUE TO LEAKING ON ARRIVAL AND CATH INTACT,CRISTY BULB NON SX TUBE WITH SPLIT ENTIRE LENGTH OF TUBING I REMOVED TAPED THAT WAS WRAPPED AROUND TUBING AND CLEANED AREA WITH TUBING COILED CLOSE TO SITE POSSIBLE WITH AQUACELLS PLACED OVER TUBING TO ASSIST PREVENTION OF INFECTION AND KEEP DRY POSSIBLE,I SECURED NG TO GOWN AND PLACED TO SX-PT WITH BROWN -RED TINGED DRNG SOME COFFEE GROUND APPEARANCE AND OCC FLASHING OF RED SX UP TUBING WHICH PT REPORTS HAS BEEN UNCHANGED,PT HAS EVELIN TO RLE AND ABD WITH LIGHT PARTIAL COVERING OF DRK RED DRNG.PT HAS HX REPEATED RLE SURGERIES WITH INFECTIONS.BILAT LOWER SHINS REDENED AND APPEAR INFLAMMED.PT PICC WAS ABLE TO FLUSH AND DRAW FROM RED PORT ONLY.CHANGED NON SLIP TREADS TO BARIATRIC TREADS FOR COMFORT AND CIRCULATION.PT A/O,SITS ON EDGE OF BED.
[2023-01-30 10:51] VITALS: BP 172/64
[2023-01-30 14:27] VITALS: BP 155/63
--- NOTE | 2023-01-30 17:51 | NUR ---
SHIFT SUMMARY POD3 EX LAP WITH MAXWELL PATCH, A/OX4, VSS, TOLERATING SIPS, HIS REPORTS HE HAS BEEN SNEAKING DRINKS, CRISTY DRAIN PULLED BY , GAUZE PLACED OVER CRISTY DRAIN PUNCTURE SITE WHICH HAS BEEN SLOWLY DRAINING SEROUS FLUID WHICH WAS CHANGED [address] IN [address] CURRENTLY, [address] WHICH ARE BOTH DRY AND INTACT, PT EDUCATED AND ENCOURAGED TO GET UP AND BE IN THE CHAIR DURING THE DAY AND TAKE SHORT WALKS WHEN ABLE TO. NO ACUTE EVENTS THIS SHIFT, CALL LIGHT IN REACH.
[2023-01-30 18:40] VITALS: BP 172/67
[2023-01-31] VITALS (22 sets, daily range): BP systolic 102–169; BP diastolic 49–94
[2023-01-31 04:37] LABS: Hematocrit 23.3 % (37.0-53.0); Hemoglobin 7.2 g/dL (13.5-17.5); Mean Corpuscular HGB 28.7 pg (26.0-34.0); Mean Corpuscular HGB Conc 30.9 g/dL (31.5-36.5); Mean Corpuscular Volume 93 fL (80-100); Mean Platelet Volume 8.4 fL (9.1-12.4); Platelet Count 289 K/mm3 (150-400); RDW Coefficient Variation 16.6 % (11.7-14.2); RDW Standard Deviation 55.3 fL (35.1-46.3); Red Blood Cell Count 2.51 M/mm3 (4.30-5.90); White Blood Cell Count 8.12 K/mm3 (4.00-11.30)
[2023-01-31 04:45] LABS: Albumin, Blood 1.8 g/dL (3.4-5.0); Albumin/Globulin Ratio 0.4 (0.8-1.8); Bilirubin, Total 0.4 mg/dL (0.1-1.0); Bun/Creatinine Ratio 21.3 (12.0-20.0); Calcium, Blood 7.5 mg/dL (8.5-10.1); Creatinine, Blood 0.94 mg/dL (0.60-1.20); Potassium, Blood 3.8 mmol/L (3.5-5.5); Total Protein, Blood 5.8 g/dL (6.4-8.2)
--- NOTE | 2023-01-31 04:52 | NUR ---
SHIFT SUMMARY POD4 EX LAP PT UP MOST OF NIGHT. PAIN MANAGED PER EMAR. NG TUBE PUT OUT 500ML BROWN LIQUID. PCIO TO THE MIDLINE HAS LITTLE SEROSANGUINEOUS DRAINAGE ON IT, D/I. EVELIN THE R KNEE HAS A SCANT AMOUNT OF SEROSANGUINEOUS DRAINAGE ON IT, D.I. BOTH COMPRESSED. PT PASSING GAS AND HAD BM ON SHIFT. VOIDING. CLINIMIX RUNNNING. VSS. NO OTHER CANCERNS AT THIS TIME. CALL LIGHT WITHIN REACH
--- NOTE | 2023-01-31 08:52 | NUR ---
PT LEAVING FOR IMAGING AT THIS TIME.
--- NOTE | 2023-01-31 10:28 | NUR ---
reconnected pt to suction at this time. worked with physical therapy after imaging
--- NOTE | 2023-01-31 16:14 | NUR ---
shift summary pod 4 ex lap pt taken back to or today. currently in the or. prior to that his pain has been doing better per reports. he remained npo with ngt to low intermittent suction. working with therapy. more discomfort and increased swelling to r knee. ortho consulted regarding swelling. has been at bedside during shift.
--- NOTE | 2023-01-31 18:55 | NUR ---
ARRIVAL TO UNIT ARRIVED FROM PACU VIA GURNEY. 2 CRISTY DRAINS TO RLQ, MARKED POSTERIOR #1, AND ANTERIOR #2. EVELIN DRESSING MIDLINE IS CDI, GREEN LIGHT FLASHING. LAP SITES ALSO CDI WITH WOUND GLUE. NGT CONNECTED TO LIS, MINIMAL BROWNISH DRAINAGE IN TUBE. PT DENIES PAIN AT THIS TIME AND IS ATTEMPTING TO SLEEP. HR HAS BEEN 42-45 [address] SPO[address] PRABHAKAR WHO ROUNDED. ORDERS RECIEVED FOR TELE AT THIS TIME. WILL REPORT TO ONCOMING RN.
[2023-02-01 03:16] VITALS: BP 147/61
--- NOTE | 2023-02-01 05:18 | NUR ---
SHIFT SUMMARY PT RESTED WELL LAST NOC. POST OP VS STABLE. TELE REMAINS SB IN THE 40S. NO ACUTE EVENTS. ON 2L VIA NC SATTING 98% WITH CONT BIOX IN PLACE. MIDLINE EVELIN DRESSING COMPRESSED AND CDI. X4 LAP SITES WITH WOUND GLUE REMAIN CDI. X2 CRISTY DRAINS WITH SS FLUID. #2 ANTERIOR CRISTY DRAIN WITH MORE OUTPUT THAN #1 POSTERIOR CRISTY DRAIN. NGT TO LIS WITH BROWN DRAINAGE OUT. STRICTLY NPO. DENIES FLATUS. ABD MODERATELY DISTENDED WITH HYPOACTIVE BTS X4 QUADRANTS. 50 MCG IV FENTANYL FOR PAIN MANAGEMENT. TPN + ABX INFUSING PER ORDERS. USING URINAL TO VOID. 1 ASSIST USING FWW UP TO CHAIR. EVELIN DRESSING TO RIGHT KNEE REMAINS COMPRESSED AND CDI. PT STATES HE FEELS "GOOD" OVERALL. USES CALL LIGHT APPROPRIATELY.
[2023-02-01 05:45] LABS: Anion Gap 4 mmol/L (6-16); Blood Urea Nitrogen 24 mg/dL (8-24); Bun/Creatinine Ratio 25.8 (12.0-20.0); CO2, Blood 28 mmol/L (21-32); Calcium, Blood 7.6 mg/dL (8.5-10.1); Chloride, Blood 114 mmol/L (98-108); Creatinine, Blood 0.93 mg/dL (0.60-1.20); Glomerular Filtration Rate 85 (60-); Glucose, Blood 132 mg/dL (70-99); Phosphorus, Blood 2.8 mg/dL (2.5-4.9); Potassium, Blood 3.8 mmol/L (3.5-5.5); Sodium, Blood 146 mmol/L (136-145); Triglycerides 103 mg/dL (30-160)
[2023-02-01 07:25] VITALS: BP 157/86
--- NOTE | 2023-02-01 11:44 | NUR ---
Pt. is sitting up in a recliner when he welcomes my visit. Spouse is at bedside. Pt. is pleasant. Facilitated a review of his recent discharge, readmission. Pt. displays evidence of awareness and engagement. Family verbalized that they have been recieving spiritual support from [facility]. Prayed with the family. Both Pt. and spouse verbalize gratitude for the spiritual care visit.
[2023-02-01 14:39] VITALS: BP 167/84
--- NOTE | 2023-02-01 18:34 | NUR ---
SUMMARY: PT IS POD1 ABD WASH OUT WITH NEW GRAM PATCH PLACEMENT. PT IS A/O, VS AND TELE STABLE. ABD IS SOFT AND TENDER, PT REPORTS NOT PASSING GAS. TOTAL OF 300ML DARK BROWN OUTPUT FROM NGT TODAY. NGT IS TO LIS, WNL. ML EVELIN DRESSING AT ABD COMPRESSED AND WNL. CRISTY DRAINS COMPRESSED SEE CHARTED OUTPUT. PICC LINE INFUSING TPN AND ANTIBIOTICS. R KNEE SURGICAL SITE SWELLING HAS NOT INCREASED TODAY. THE KNEE IS WARM TO THE TOUCH, BUT NOT HOT OR RED. DR. KIDD IN ROOM THIS EVENING, SEE PROGRESS NOTE. AQUACEL DRESSING AT R CANO CHANGED TONIGHT. AND PREVENATIVE MEPILEX PLACED TO COCCYX. PT MOBILE IN ROOM TODAY, WORKED WITH THERAPY AND UP IN CHAIR MOST OF TODAY. PT CALLS APPROPRIATLY. NO ACUTE SAFETY CONCERNS.
[2023-02-01 19:03] VITALS: BP 157/73
[2023-02-02 03:49] VITALS: BP 158/77
[2023-02-02 05:23] LABS: Hemoglobin 7.8 g/dL (13.5-17.5); Mean Corpuscular HGB 29.2 pg (26.0-34.0); Mean Corpuscular HGB Conc 31.2 g/dL (31.5-36.5); Mean Corpuscular Volume 94 fL (80-100); Mean Platelet Volume 8.5 fL (9.1-12.4); Platelet Count 261 K/mm3 (150-400); RDW Coefficient Variation 17.1 % (11.7-14.2); RDW Standard Deviation 56.7 fL (35.1-46.3); Red Blood Cell Count 2.67 M/mm3 (4.30-5.90); White Blood Cell Count 8.76 K/mm3 (4.00-11.30)
[2023-02-02 05:48] LABS: Bun/Creatinine Ratio 28.9 (12.0-20.0); Calcium, Blood 7.5 mg/dL (8.5-10.1); Creatinine, Blood 0.83 mg/dL (0.60-1.20); Magnesium, Blood 1.9 mg/dL (1.6-2.4); Phosphorus, Blood 2.7 mg/dL (2.5-4.9); Potassium, Blood 3.7 mmol/L (3.5-5.5)
[2023-02-02 07:09] VITALS: BP 159/68
--- NOTE | 2023-02-02 08:06 | NUR ---
summary pt sitting up in reclining chair tonight by his choice. pt denies nausea. ng patent with no change in position or securement this shift.dr here to check pt this am.cxr ordered.
--- NOTE | 2023-02-02 08:30 | NUR ---
DR. ANDERSON ROUNDED AND QUESTIONED PLACEMENT OF NG. CHEST XRAY ORDERED AND COMPLETED TO CONFIRM PLACEMENT OF NG TUBE.
--- NOTE | 2023-02-02 12:13 | NUR ---
NG TUBE RECONNECTED TO LOW INTERMITTENT SUCTION AND TPN RECONNECTED AFTER PT WORKED WITH PHYSICAL THERAPY.
[2023-02-02 14:46] VITALS: BP 171/73
[2023-02-02 15:15] VITALS: BP 171/84
[2023-02-02 16:06] VITALS: BP 166/65
[2023-02-02 19:24] VITALS: BP 160/80
--- NOTE | 2023-02-02 19:57 | NUR ---
SHIFT SUMMARY PT IS POD#4 FROM MAXWELL PATCH AND POD#2 FROM EX LAP. PAIN MANAGED WITH IV FENTANYL THIS SHIFT. NG TUBE TO LOW INTERMITTENT SUCTION. PT IS A 1 PERSON SBA WHEN OOB. PT IS ALERT, ORIENTED AND CALLS APPROPRIATELY. PT GETTING CPN. CRISTY DRAINS REMAIN IN PLACED, DRAINING SEROSANGUINOUS FLUID. BEDSIDE REPORT GIVEN TO SRINIVAS XIE.
[2023-02-03 02:36] VITALS: BP 157/82
--- NOTE | 2023-02-03 06:31 | NUR ---
SHIFT SUMMARY PT IS POD#7 FOR AN EX LAP SHOWING PNEUMOPARITONIUM, ACUTE PERITONITIS, AND A PERFORATED DUODENAL ULCER THAT UTILIZED A MAXWELL PATCH REPAIR. PT IS ALSO POD#3 FROM A ROBOTIC ASSISTED DIAGNOSTIC LAP W/ NAT, DRAINAGE OF AN INTRAPARITONEAL ABSCESS, REVISION OF THE MAXWELL PATCH, AND PARTIAL OMENTECTOMY. PT'S TWO EVELIN'S AND TWO CRISTY DRAINS ARE PATENT AND IN WORKING ORDER. PT'S VITAL SIGNS HAVE BEEN STABLE THIS SHIFT. PT DID HAVE A LOOSE BM WHERE THE PT WAS UNABLE TO GET TO THE BSC IN TIME. PT'S CLOTHING REMOVED AND PT WAS PUT INTO A GOWN D/T SOILING OF PT'S CLOTHING. PT'S NGT WORKING PROPERLY AND IS AT [facility]. PT HAS BEEN SOMEWHAT RESTLESS THROUGHOUT THE SHIFT, BUT ONLY ASKED FOR PAIN MEDICATION ONE TIME. BED IS IN LOWEST POSITION, CALL LIGHT IS WITHIN REACH.
[2023-02-03 06:47] LABS: Bun/Creatinine Ratio 28.9 (12.0-20.0); Calcium, Blood 7.8 mg/dL (8.5-10.1); Creatinine, Blood 0.8 mg/dL (0.60-1.20); Magnesium, Blood 1.9 mg/dL (1.6-2.4); Phosphorus, Blood 2.7 mg/dL (2.5-4.9); Potassium, Blood 3.5 mmol/L (3.5-5.5)
[2023-02-03 07:15] VITALS: BP 164/74
[2023-02-03 14:43] VITALS: BP 146/65
--- NOTE | 2023-02-03 15:00 | NUR ---
WITH MORNING ASSESSMENT THIS RN NOTED CRISTY DRAIN DRESSINGS PEALING UP WITH DRY DRAINAGE SOURROUNDING THE INSERTION SITES. DR. ANDERSON OK WITH CHANGING DRESSINGS. DRESSINGS REMOVED AND SITE CLEANSED WITH CLORAPREP, SUTURES ARE INTACT TO BOTH ANTERIOR AND POSTERIOR SITES. NEW CHG DRESSINGS APPLIED TO SITES AND ARE NOW CDI. BOTH CRISTY'S ARE WNL AND COMPRESSED.
--- NOTE | 2023-02-03 15:05 | NUR ---
DR. KIDD IN ROOM AT ABOUT 1430. EVELIN AND CANDIS REMOVED TO R KNEE AND CANO. STERI STRIPS APPLIED BY DR. KIDD AND THEN BOTH SITES DRESSED WITH MEDIPORE BY THIS RN.
--- NOTE | 2023-02-03 18:42 | NUR ---
SUMMARY: PT IS POD3 LAP REVISION WITH NEW GRAM PATCH. A/O, VSS. ABD IS SOFT AND APPEARS MILDLY DISTENTED, HYPOACTIVE TONES. ML EVELIN WNL AND CRISTY DRAINS COMPRESSED, SEE CHARTED OUTPUT. PT REPORTED "ACHY CRAMPING ABD PAIN" TODAY AND HAS HAD SEVERAL BROWN LIQ BM'S. MEDICATED PER EMAR FOR PAIN. NGT CONTINUES TO LIS, SECURED TO R NARE. TOTAL OUTPUT THIS SHIFT WAS 700ML. PT EDUCATED AND CAUTIONED ABOUT NOT PULLING LINES/TUBES AND MOVING SLOW WHEN STANDING OR MOVING TO COMMODE. NEW DRESSINGS TO R LEG CDI. NO ACUTE SAFETY CONCERNS TODAY. PLAN IS FOR REPEAT UGI LEAK TEST TOMORROW, PT AND PT AWARE.
[2023-02-03 19:05] VITALS: BP 151/79
[2023-02-04 04:42] VITALS: BP 144/69
[2023-02-04 06:44] LABS: Anion Gap Unable to Calculate mmol/L (6-16); Bun/Creatinine Ratio Unable to Calculate (12.0-20.0)
--- NOTE | 2023-02-04 06:44 | NUR ---
SHIFT SUMMARY PT IS HERE POD#8 FROM AN EX LAP FOR PNEUMOPARITONIUM, ACUTE PERITONITIS, AND A PERFORATED DUODENAL ULCER WHICH RESULTED IN THE PT RECEIVING A MAXWELL PATCH AT THAT TIME. PT IS ALSO POD#4 FOR A RETURN TO THE OR FOR A ROBOTIC ASSISTED DIAGNOSTIC LAP WHERE THE PT HAD A NAT, DRAINAGE OF AN INTRAPERITONEAL ABSCESS, REVISION OF THE MAXWELL PATCH, AND A PARTIAL OMENTECTOMY. PT HAD A FAIRLY UNEVENTFUL NIGHT. HIS PAIN AND RESTLESS LEGS WERE MANAGED PER EMAR. VITAL SIGNS HAVE BEEN STABLE. PT HAS BEEN RESTING THROUGHOUT THE NIGHT IN THE CHAIR. CALL LIGHT IS WITHIN REACH.
[2023-02-04 07:11] LABS: Magnesium, Blood 1.9 mg/dL (1.6-2.4)
[2023-02-04 07:22] LABS: Bun/Creatinine Ratio 27.1 (12.0-20.0); Creatinine, Blood 0.85 mg/dL (0.60-1.20); Phosphorus, Blood 2.8 mg/dL (2.5-4.9); Potassium, Blood 3.6 mmol/L (3.5-5.5)
[2023-02-04 07:35] VITALS: BP 158/72
--- NOTE | 2023-02-04 10:51 | NUR ---
PATIENT BACK FROM IMAGING AND ORDER FOR NGT TO BE REMOVED PALCED BY DR. ANDERSON. THIS RN REMOVED NGT WITH NO COMPLICATIONS. CHANGED DRESSING ON BOTH CRISTY DRAINS IN RLQ. PATIENT IS UP TO BSC FOR BM. AWAITING SPOUSE TO GET CLOTHING FOR A SHOWER TODAY.
[2023-02-04 14:52] VITALS: BP 160/92
--- NOTE | 2023-02-04 19:31 | NUR ---
SHIFT SUMMARY PATIENT IS AOX4, WORKED WITH PT TODAY, SHOWERED, NGT REMOVED, TOLERATED WELL. PATIENT HAS BEEN HAVING FREQUENT BMS THIS SHIFT AFTER RECIEVING CONTRAST. ABLE TO SIP SOME WATER AND ICE CHIPS. CLEAR ENSURE WAS TOO SWEET FOR HIS LIKING. PATIENT IS STILL GETTING IV CPN, AND ABX. VSS. CALL LIGHT IN REACH.
[2023-02-04 21:09] VITALS: BP 135/72
[2023-02-05 05:04] VITALS: BP 142/73
[2023-02-05 06:44] LABS: Bun/Creatinine Ratio 27.1 (12.0-20.0); Calcium, Blood 7.7 mg/dL (8.5-10.1); Creatinine, Blood 0.85 mg/dL (0.60-1.20); Phosphorus, Blood 2.8 mg/dL (2.5-4.9); Potassium, Blood 3.8 mmol/L (3.5-5.5)
[2023-02-05 07:33] VITALS: BP 167/63
[2023-02-05 14:13] VITALS: BP 151/75
--- NOTE | 2023-02-05 18:00 | NUR ---
SHIFT SUMMARY PT TOLERATING DIET WELL WITH NO NAUSEA OR INCREASED PAIN. CRISTY DRAIN DRESSINGS CHANGED TODAY. MIDLINE INCISION CDI. NEW DRESSING PLACED TO R KNEE. INCISION CDI. STERI STRIPS BEGINNING TO FALL OFF. PT CONTINUES TO HAVE LOOSE STOOLS BUT REPORTS SOME IMPROVEMENT.
[2023-02-05 19:53] VITALS: BP 151/64
[2023-02-06 04:02] VITALS: BP 123/63
[2023-02-06 05:13] LABS: Bun/Creatinine Ratio 28.4 (12.0-20.0); Calcium, Blood 7.6 mg/dL (8.5-10.1); Creatinine, Blood 0.85 mg/dL (0.60-1.20); Magnesium, Blood 1.9 mg/dL (1.6-2.4); Phosphorus, Blood 2.6 mg/dL (2.5-4.9); Potassium, Blood 3.9 mmol/L (3.5-5.5)
[2023-02-06 07:16] VITALS: BP 135/69
[2023-02-06 14:48] VITALS: BP 136/65
[2023-02-06 19:43] VITALS: BP 109/58
--- NOTE | 2023-02-06 20:18 | NUR ---
NOC RN NOTIFIED THAT PT IS REFUSING SCD'S. NOC EVENT CREW TECHNICIAN CYNDEE STATED SHE WOULD FOLLOW UP WITH DR. ANDERSON REGARDING THE NEED FOR CHEMICAL DVT PROPHYLAXIS.
[2023-02-07 04:30] VITALS: BP 118/73
[2023-02-07 07:08] VITALS: BP 121/74
--- NOTE | 2023-02-07 07:25 | NUR ---
SUMMARY NO ACUTE CHANGES NOTED THROUGH THE NIGHT, VSS, ON RA, SITTING UP IN RECLINER THIS AM, CALL LIGHT IN REACH, REPORT GIVEN TO CHELSIE XIE
--- NOTE | 2023-02-07 13:45 | NUR ---
REPORTS TOLERATED [facility] SOFT DIET A LUNCH WELL, DENIES ANY PAIN OR ABD DISCOMFORT AT THIS TIME, CONT. TO MONITOR FOR ANY CHANGES.
[2023-02-07 15:02] VITALS: BP 148/69
--- NOTE | 2023-02-07 17:02 | NUR ---
SUMMARY OOB TO CHAIR MOST OF THE DAY, AMBULATED DOWN THE HALLS W/ ASSIST AND WALKER, [facility] AT LUNCH TIME, PT REPORTS TOLERATED WELL, CRISTY DRAIN DSG CHANGED ONCE TODAY, PPN DC'D, NO ACUTE CHANGES THIS SHIFT.
[2023-02-07 19:35] VITALS: BP 87/50
--- NOTE | 2023-02-07 20:10 | NUR ---
HYPOTENSIVE PT HYPOTENSIVE, SBP IN THE 80'S. PT ASYMPTOMATIC AND STATES THAT HE FEELS FINE. DHAVAL WESTON NP NOTIFIED. 1000 ML FLUID BOLUS ORDERED.
[2023-02-07 21:27] LABS: Hematocrit 25.6 % (37.0-53.0); Hemoglobin 7.8 g/dL (13.5-17.5)
[2023-02-07 22:28] VITALS: BP 96/53
[2023-02-07 23:03] VITALS: BP 102/45
[2023-02-08 04:18] LABS: Triglycerides 106 mg/dL (30-160)
[2023-02-08 04:49] VITALS: BP 111/66
--- NOTE | 2023-02-08 05:34 | NUR ---
SHIFT SUMMARY PT HAS SLEPT OFF AND ON IN RECLINER T/O THE SHIFT. PT REPORTS THAT HE PREFERS TO SLEEP IN RECLINER. PT HAS DENIED PAIN T/O THE NIGHT. ABD INCISION WNL, CRISTY DRAIN SITE WNL. PT HYPOTENSIVE AT THE START OF THE SHIFT, SBP IN THE 80'S. PT ASYMPTOMATIC. 1L FLUID BOLUS ADMINISTERED AND PT BP IMPROVED. LABS WERE ORDERED ALSO, LACTIC AND H&H. LACTIC WNL. H&H STILL TRENDING AROUND PT BASELINE. NO OTHER CHANGES TO REPORT T/O THE NIGHT. BED IN LOWEST POSITION, CALL LIGHT WITHIN REACH.
[2023-02-08 07:11] VITALS: BP 116/49
[2023-02-08 08:56] LABS: BASOPHILS ABSOLUTE AUTO 0.03 K/mm3 (0.00-0.23); BASOPHILS PERCENT AUTO 0 % (0-2); EOSINOPHILS ABSOLUTE AUTO 0.36 K/mm3 (0.00-0.68); EOSINOPHILS PERCENT AUTO 4 % (0-6); Hematocrit 25.8 % (37.0-53.0); Hemoglobin 8.1 g/dL (13.5-17.5); IMMATURE GRAN ABSOLUTE AUTO 0.11 K/mm3 (0.00-0.10); IMMATURE GRAN PERCENT AUTO 1 % (0-1); LYMPHOCYTES ABSOLUTE AUTO 1.03 K/mm3 (0.84-5.20); LYMPHOCYTES PERCENT AUTO 12 % (21-46); MONOCYTES ABSOLUTE AUTO 0.48 K/mm3 (0.16-1.47); MONOCYTES PERCENT AUTO 6 % (4-13); Mean Corpuscular HGB Conc 31.4 g/dL (31.5-36.5); Mean Corpuscular Volume 96 fL (80-100); Mean Platelet Volume 9.4 fL (9.1-12.4); NEUTROPHILS ABSOLUTE AUTO 6.49 K/mm3 (1.96-9.15); NEUTROPHILS PERCENT AUTO 76 % (41-73); Platelet Count 245 K/mm3 (150-400); RDW Coefficient Variation 18.6 % (11.7-14.2); RDW Standard Deviation 63.6 fL (35.1-46.3)
[2023-02-08 09:15] LABS: Albumin/Globulin Ratio 0.5 (0.8-1.8); Bilirubin, Total 0.6 mg/dL (0.1-1.0); Bun/Creatinine Ratio 28.7 (12.0-20.0); Calcium, Blood 7.8 mg/dL (8.5-10.1); Creatinine, Blood 0.84 mg/dL (0.60-1.20); Globulin, Blood 3.8 g/dL (2.2-4.0); Total Protein, Blood 5.8 g/dL (6.4-8.2)
[2023-02-08 14:59] VITALS: BP 125/60
--- NOTE | 2023-02-08 18:30 | NUR ---
SUMMARY: PT IS POD7 GRAM PATCH REVISION. A/O,VSS. PT HAS DENIED PAIN TODAY. ABD IS SOFT AND PT HAVING BM'S. ML INCISION TO ABD IS ANMOL AND WNL. TOTAL SS DRAINAGE OUT FROM CRISTY WAS 40ML. PT SAT IN THE CHAIR MOST OF THE DAY AND WALKED IN THE HALLS X2 WITH THERAPY. GIVEN IV ANTIBIOTICS THROUGH PICC. NO ACUTE SAFETY CONCERNS.
[2023-02-08 19:19] VITALS: BP 109/59
[2023-02-09 04:11] VITALS: BP 129/68
--- NOTE | 2023-02-09 04:59 | NUR ---
SHIFT SUMMARY POD 13 EX LAP W/GRAHM PATCH; POD 9 EX LAP REVISION, NAT PT RESTED IN RECLINER T/O. TOLERTAING PO INTAKE. REPOSITIONING SELF IN CHAIR FOR COMFORT. VOIDING. CRISTY DRAIN TO RLQ, DRAINING SEROUS FLUID. BULB COMPRESSED. MIDLINE OPEN TO AIR, CLOSED W/ CANDIS. NO OTHER CONCERNS A THIS TIME. CALL LIGHT WITHIN REACH
[2023-02-09 07:19] VITALS: BP 121/65
[2023-02-09 14:29] VITALS: BP 142/69
--- NOTE | 2023-02-09 17:43 | NUR ---
SHIFT SUMMARY CRISTY DRAIN TO RLQ PATENT AND DRAINING. PT STATES HIS PAIN HAS BEEN DOING WELL T/O THE SHIFT. MIDLINE INCISION CDI, ANMOL. AMBULATING WELL WITH WALKER. PLAN IS FOR PATIENT TO POSSIBLY DISCHARGE TOMORROW. TOLERATING DIET WELL. PASSING GAS AND HAVING BOWEL MOVEMENTS
[2023-02-09 20:01] VITALS: BP 123/64
--- NOTE | 2023-02-10 04:38 | NUR ---
SHIFT SUMMARY POD 14 EX LAP W/ GRAHM PATCH; POD10 EX LAP W/ GRAHM PATCH REVISION. PT ABLE TO SLEEP T/O NIGHT. DENIES ANY PAIN. TOLERTAING PO INTAKE, VOIDING, PASSING GAS. CRISTY DRAIN STILL PUTTING OUT SEROUS FLUID. PLAN FOR D/C TODAY. NO OTHER CONERNS AT THIS TIME. CALL LIGHT WITHIN REACH
[2023-02-10 04:43] VITALS: BP 130/61
[2023-02-10 07:41] VITALS: BP 137/74
--- NOTE | 2023-02-10 10:23 | NUR ---
drain removed this morning by dr. hugo. javier removed by dr. figueroa. pt tolerated well. steri strips applied over midline incision. ela site covered with foam bordered dressing.
[2023-02-10] MEDS ORDERED: SUCR1 PO (11:05)
[2023-02-10] MEDS ORDERED: PANT40 PO (11:06)
[2023-02-10] MEDS ORDERED: VISBIOME 112.51 EACH PO (11:06)
--- NOTE | 2023-02-10 13:08 | NUR ---
DISCHARGE PT LEFT VIA WHEELCHAIR, ALL BELONGINGS WITH PATIENT AND SPOUSE. ALL INSTRUCTIONS GONE OVER WITH BOTH. NO QUESTIONS AT THIS TIME. PT HAS BEEN AMBULATING WELL USING WALKER. TOLERATING DIET WELL. MIDLINE INCISION REMAINS CDI. PT PLANS TO CONTINUE HOME HEALTH FOR INFUSIONS AND THERAPY FOR HIS KNEE. DRESSING CHANGED TO PICC PRIOR TO DISCHARGE.
== END 2023-02-10 13:14 | disposition home health service (06) | DRG 853 ==
LOC: ER 19:24 → ICUE 23:27 → PCU 23:27 → SURS 23:27 → PCU 01-27 01:38 → ICUE 01-27 05:20 → SURS 01-30 03:05
PROVIDERS: Emergency Medicine; Internal Medicine; Nurse Practitioner Acute Care; Surgery; ADMIT Internal Medicine
PROC: 0D9670Z Drainage of Stomach with Drainage Device, Via Natural or Artificial Opening (ICD-10-PCS; 2023-01-26)
PROC: 3E03329 Introduction of Other Anti-infective into Peripheral Vein, Percutaneous Approach (ICD-10-PCS; 2023-01-26)
PROC: 3E033XZ Introduction of Vasopressor into Peripheral Vein, Percutaneous Approach (ICD-10-PCS; 2023-01-27)
PROC: 5A09357 Assistance with Respiratory Ventilation, Less than 24 Consecutive Hours, Continuous Positive Airway Pressure (ICD-10-PCS; 2023-01-27)
PROC: 0DU907Z Supplement Duodenum with Autologous Tissue Substitute, Open Approach (ICD-10-PCS; principal; 2023-01-27 06:30)
PROC: 0DU947Z Supplement Duodenum with Autologous Tissue Substitute, Percutaneous Endoscopic Approach (ICD-10-PCS; 2023-01-31)
PROC: 0DBU4ZZ Excision of Omentum, Percutaneous Endoscopic Approach (ICD-10-PCS; 2023-01-31)
PROC: 0DNW4ZZ Release Peritoneum, Percutaneous Endoscopic Approach (ICD-10-PCS; 2023-01-31)
PROC: 0W9G40Z Drainage of Peritoneal Cavity with Drainage Device, Percutaneous Endoscopic Approach (ICD-10-PCS; 2023-01-31)
PROC: 3E0336Z Introduction of Nutritional Substance into Peripheral Vein, Percutaneous Approach (ICD-10-PCS; 2023-01-31)
PROC: 8E0W4CZ Robotic Assisted Procedure of Trunk Region, Percutaneous Endoscopic Approach (ICD-10-PCS; 2023-01-31)
DX: A41.9 Sepsis, unspecified organism (principal); K26.1 Acute duodenal ulcer with perforation; R65.21 Severe sepsis with septic shock; K65.1 Peritoneal abscess; E87.1 Hypo-osmolality and hyponatremia; E87.0 Hyperosmolality and hypernatremia; T84.53XA Infection and inflammatory reaction due to internal right knee prosthesis, initial encounter; M00.061 Staphylococcal arthritis, right knee; T81.43XA Infection following a procedure, organ and space surgical site, initial encounter; D50.9 Iron deficiency anemia, unspecified; I10 Essential (primary) hypertension; E03.9 Hypothyroidism, unspecified; G25.81 Restless legs syndrome; E78.5 Hyperlipidemia, unspecified; G89.29 Other chronic pain; M54.9 Dorsalgia, unspecified; H40.9 Unspecified glaucoma; G47.33 Obstructive sleep apnea (adult) (pediatric); E86.0 Dehydration; D63.8 Anemia in other chronic diseases classified elsewhere; B95.61 Methicillin susceptible Staphylococcus aureus infection as the cause of diseases classified elsewhere; E66.9 Obesity, unspecified; K66.0 Peritoneal adhesions (postprocedural) (postinfection); E87.6 Hypokalemia; Z79.890 Hormone replacement therapy; Z79.01 Long term (current) use of anticoagulants; Z79.891 Long term (current) use of opiate analgesic; Z88.8 Allergy status to other drugs, medicaments and biological substances; Z88.1 Allergy status to other antibiotic agents; Z87.891 Personal history of nicotine dependence; Z98.1 Arthrodesis status; Z96.641 Presence of right artificial hip joint; Z96.82 Presence of neurostimulator; Z79.82 Long term (current) use of aspirin; Z87.898 Personal history of other specified conditions; Z68.38 Body mass index [BMI] 38.0-38.9, adult
CPT/HCPCS: 36415; 43752; 51703; 71045; 74160; 74177; 74240; 80047; 80048; 80053; 81001; 82728; 83540; 83550; 83605; 83690; 83735; 83880; 84100; 84478; 84484; 85014; 85018; 85025; 85027; 86850; 86900; 86901; 88307; 93005; 93010; 94660; 94762; 96361-59; 96374-59; 96375-59; 96376-59; 97110; 97116; 97162; 97530; 99285-25; A9270; C9113; J0360; J0612; J1170; J1650; J2060; J2250; J2405; J2543; J2704; J2710; J2765; J2916; J3010; J3411; J3475; J3480; J7030; J7040; J7050; J7060; J7120; J7131; Q9967

== ENCOUNTER → 2023-02-13 | Outpatient (CLI) | payer MEDICARE, BC ==
[~2023-02-13] MED LIST changes: +PANT40 PO; +SUCR1 PO; +VISBIOME 112.51 EACH PO
[2023-02-13 19:00] LABS: Hematocrit 22.8 % (37.0-53.0); Hemoglobin 7.2 g/dL (13.5-17.5); Mean Corpuscular HGB 29.9 pg (26.0-34.0); Mean Corpuscular HGB Conc 31.6 g/dL (31.5-36.5); Mean Corpuscular Volume 95 fL (80-100); Platelet Count 310 K/mm3 (150-400); RDW Coefficient Variation 18.6 % (11.7-14.2); RDW Standard Deviation 63.8 fL (35.1-46.3); Red Blood Cell Count 2.41 M/mm3 (4.30-5.90); White Blood Cell Count 7.61 K/mm3 (4.00-11.30)
[2023-02-15 10:12] LABS: ALBUMIN 2.9 g/dL (3.8-4.8); BILIRUBIN, DIRECT 0.19 mg/dL (0.00-0.40); BILIRUBIN, TOTAL 0.4 mg/dL (0.0-1.2); PROTEIN, TOTAL 6.2 g/dL (6.0-8.5)
== END | disposition home or self-care (01) ==
LOC: LAB SHORT 11:00 → LAB 11:00
PROVIDERS: Physician Assistant Surgical
DX: T84.53XD Infection and inflammatory reaction due to internal right knee prosthesis, subsequent encounter (principal)
CPT/HCPCS: 80076; 82565; 85027

== ENCOUNTER 2023-02-14 19:55 | Emergency (ER) | payer MEDICARE, BC ==
[~2023-02-14] VITALS: Ht 177.8 cm; Wt 120.2 kg
[2023-02-14 20:09] VITALS: BP 91/50
[2023-02-14 20:24] LABS: BASOPHILS ABSOLUTE AUTO 0.04 K/mm3 (0.00-0.23); BASOPHILS PERCENT AUTO 1 % (0-2); EOSINOPHILS ABSOLUTE AUTO 0.29 K/mm3 (0.00-0.68); EOSINOPHILS PERCENT AUTO 4 % (0-6); Hemoglobin 7.8 g/dL (13.5-17.5); IMMATURE GRAN ABSOLUTE AUTO 0.07 K/mm3 (0.00-0.10); IMMATURE GRAN PERCENT AUTO 1 % (0-1); LYMPHOCYTES ABSOLUTE AUTO 1.37 K/mm3 (0.84-5.20); LYMPHOCYTES PERCENT AUTO 20 % (21-46); MONOCYTES ABSOLUTE AUTO 0.69 K/mm3 (0.16-1.47); MONOCYTES PERCENT AUTO 10 % (4-13); Mean Corpuscular HGB Conc 31.2 g/dL (31.5-36.5); Mean Corpuscular Volume 96 fL (80-100); Mean Platelet Volume 9.1 fL (9.1-12.4); NEUTROPHILS ABSOLUTE AUTO 4.42 K/mm3 (1.96-9.15); NEUTROPHILS PERCENT AUTO 64 % (41-73); Platelet Count 256 K/mm3 (150-400); RDW Coefficient Variation 18.7 % (11.7-14.2); RDW Standard Deviation 65.5 fL (35.1-46.3); White Blood Cell Count 6.88 K/mm3 (4.00-11.30)
[2023-02-14 20:48] LABS: Albumin, Blood 2.1 g/dL (3.4-5.0); Albumin/Globulin Ratio 0.6 (0.8-1.8); Bilirubin, Total 0.3 mg/dL (0.1-1.0); Bun/Creatinine Ratio 11.7 (12.0-20.0); Calcium, Blood 7.6 mg/dL (8.5-10.1); Creatinine, Blood 0.86 mg/dL (0.60-1.20); Globulin, Blood 3.8 g/dL (2.2-4.0); Potassium, Blood 3.3 mmol/L (3.5-5.5); Total Protein, Blood 5.9 g/dL (6.4-8.2)
== END 2023-02-14 23:01 | disposition home or self-care (01) ==
LOC: ER 19:55
PROVIDERS: Student in an Organized Health Care Education/Training Program
DX: E87.6 Hypokalemia (principal); I10 Essential (primary) hypertension; E03.9 Hypothyroidism, unspecified; Z88.1 Allergy status to other antibiotic agents; Z88.8 Allergy status to other drugs, medicaments and biological substances; Z91.048 Other nonmedicinal substance allergy status; Z79.890 Hormone replacement therapy; Z79.899 Other long term (current) drug therapy; Z87.891 Personal history of nicotine dependence
CPT/HCPCS: 80053; 85025; 93005; 93010; 99285-25; A9270

== ENCOUNTER 2023-02-17 11:21 | Day surgery (SDC) | payer MEDICARE, BC ==
[2023-02-16 15:30] VITALS: BP 155/67
[2023-02-17 13:43] VITALS: BP 152/61
[2023-02-17 14:02] VITALS: BP 151/69
[2023-02-17 15:07] VITALS: BP 168/75
[2023-02-17 15:30] VITALS: BP 158/84
[2023-02-17 16:55] VITALS: BP 169/91
== END 2023-02-17 16:55 | disposition home or self-care (01) ==
LOC: ATC 11:21
DX: D50.8 Other iron deficiency anemias (principal); I10 Essential (primary) hypertension; E03.9 Hypothyroidism, unspecified; D89.89 Other specified disorders involving the immune mechanism, not elsewhere classified; G25.81 Restless legs syndrome; G47.33 Obstructive sleep apnea (adult) (pediatric); Z91.041 Radiographic dye allergy status
CPT/HCPCS: 36430; 36592; 86850; 86900; 86901; 86923; J7050; P9016

== ENCOUNTER → 2023-02-17 | Outpatient (CLI) | payer MEDICARE, BC ==
[2023-02-17 15:04] LABS: Hematocrit 27.2 % (37.0-53.0); Hemoglobin 8.5 g/dL (13.5-17.5); Mean Corpuscular HGB 29.9 pg (26.0-34.0); Mean Corpuscular HGB Conc 31.3 g/dL (31.5-36.5); Mean Corpuscular Volume 96 fL (80-100); Mean Platelet Volume 9.9 fL (9.1-12.4); Platelet Count 254 K/mm3 (150-400); RDW Coefficient Variation 18.1 % (11.7-14.2); RDW Standard Deviation 63.4 fL (35.1-46.3); Red Blood Cell Count 2.84 M/mm3 (4.30-5.90); White Blood Cell Count 6.99 K/mm3 (4.00-11.30)
[2023-02-17 15:10] LABS: Creatinine, Blood 0.75 mg/dL (0.60-1.20)
[2023-02-18 10:01] LABS: ALBUMIN 2.8 g/dL (3.8-4.8); BILIRUBIN, DIRECT 0.12 mg/dL (0.00-0.40); BILIRUBIN, TOTAL 0.3 mg/dL (0.0-1.2)
== END ==
LOC: LAB SHORT 14:16 → LAB 14:16
PROVIDERS: Physician Assistant Surgical
DX: T84.53XD Infection and inflammatory reaction due to internal right knee prosthesis, subsequent encounter (principal)
CPT/HCPCS: 80076; 82565; 85027

== ENCOUNTER → 2023-02-24 | Outpatient (CLI) | payer MEDICARE, BC ==
[2023-02-24 14:12] LABS: Albumin, Blood 2.3 g/dL (3.4-5.0); Albumin/Globulin Ratio 0.5 (0.8-1.8); Bilirubin, Direct 0.2 mg/dL (0.0-0.3); Bilirubin, Indirect 0.3 mg/dL (0.1-0.7); Bilirubin, Total 0.5 mg/dL (0.1-1.0); Creatinine, Blood 0.69 mg/dL (0.60-1.20); Globulin, Blood 4.3 g/dL (2.2-4.0); Total Protein, Blood 6.6 g/dL (6.4-8.2)
[2023-02-24 14:15] LABS: BASOPHILS ABSOLUTE AUTO 0.04 K/mm3 (0.00-0.23); BASOPHILS PERCENT AUTO 1 % (0-2); EOSINOPHILS ABSOLUTE AUTO 0.27 K/mm3 (0.00-0.68); EOSINOPHILS PERCENT AUTO 3 % (0-6); Hematocrit 31.4 % (37.0-53.0); Hemoglobin 9.9 g/dL (13.5-17.5); IMMATURE GRAN ABSOLUTE AUTO 0.05 K/mm3 (0.00-0.10); IMMATURE GRAN PERCENT AUTO 1 % (0-1); LYMPHOCYTES ABSOLUTE AUTO 1.06 K/mm3 (0.84-5.20); LYMPHOCYTES PERCENT AUTO 13 % (21-46); MONOCYTES ABSOLUTE AUTO 0.57 K/mm3 (0.16-1.47); MONOCYTES PERCENT AUTO 7 % (4-13); Mean Corpuscular HGB Conc 31.5 g/dL (31.5-36.5); Mean Corpuscular Volume 95 fL (80-100); Mean Platelet Volume 9.4 fL (9.1-12.4); NEUTROPHILS ABSOLUTE AUTO 6.19 K/mm3 (1.96-9.15); NEUTROPHILS PERCENT AUTO 76 % (41-73); Platelet Count 207 K/mm3 (150-400); RDW Coefficient Variation 16.8 % (11.7-14.2); RDW Standard Deviation 58.6 fL (35.1-46.3); White Blood Cell Count 8.18 K/mm3 (4.00-11.30)
== END ==
LOC: LAB SHORT 12:15 → LAB 12:15
PROVIDERS: Physician Assistant Surgical
DX: T84.53XA Infection and inflammatory reaction due to internal right knee prosthesis, initial encounter (principal); B95.61 Methicillin susceptible Staphylococcus aureus infection as the cause of diseases classified elsewhere; D64.9 Anemia, unspecified
CPT/HCPCS: 80076; 82565; 85025

== ENCOUNTER → 2023-12-01 | Outpatient (CLI) | payer MEDICARE, BC ==
[~2023-12-01] MED LIST changes: +CEPH500 PO; +CLOT10; +COSENTYX (150 MG/1 M; +Co Q-1010 MG; +FLUC200; +FLUT.05NI; +LATA.005SO; +LATA.005SO BOTHEYES; +METTREX2.5; +POTA20PAC
== END ==
LOC: LAB 10:00 → LAB SHORT 10:00
DX: L08.9 Local infection of the skin and subcutaneous tissue, unspecified (principal)
CPT/HCPCS: 87070; 87077; 87186; 87205

== ENCOUNTER 2023-12-07 08:36 | Day surgery (SDC) | payer MEDICARE, BC ==
[2023-12-07 14:12] VITALS: BP 151/98
== END 2023-12-07 14:43 | disposition home or self-care (01) ==
LOC: ATC 08:36
DX: L03.119 Cellulitis of unspecified part of limb (principal); G89.4 Chronic pain syndrome; I10 Essential (primary) hypertension; E78.2 Mixed hyperlipidemia; E03.9 Hypothyroidism, unspecified; G47.33 Obstructive sleep apnea (adult) (pediatric); Z88.5 Allergy status to narcotic agent; Z91.040 Latex allergy status; Z88.8 Allergy status to other drugs, medicaments and biological substances; Z79.899 Other long term (current) drug therapy; Z87.891 Personal history of nicotine dependence
CPT/HCPCS: 99211; C1751

== ENCOUNTER 2023-12-12 02:24 | Day surgery (SDC) | payer MEDICARE, BC | END 2023-12-12 23:00 | disposition home or self-care (01) | LOC: WOUND 02:24 | DX: L97.812 Non-pressure chronic ulcer of other part of right lower leg with fat layer exposed (principal); L97.822 Non-pressure chronic ulcer of other part of left lower leg with fat layer exposed; I87.2 Venous insufficiency (chronic) (peripheral); I73.9 Peripheral vascular disease, unspecified; E03.9 Hypothyroidism, unspecified; I10 Essential (primary) hypertension; M32.9 Systemic lupus erythematosus, unspecified; L40.9 Psoriasis, unspecified; J44.9 Chronic obstructive pulmonary disease, unspecified; K58.9 Irritable bowel syndrome, unspecified; Z87.891 Personal history of nicotine dependence; Z88.1 Allergy status to other antibiotic agents; Z88.8 Allergy status to other drugs, medicaments and biological substances; Z91.048 Other nonmedicinal substance allergy status | CPT/HCPCS: A6213; G0463 ==

== ENCOUNTER 2023-12-19 08:24 | Day surgery (SDC) | payer MEDICARE, BC | END 2023-12-19 23:00 | disposition home or self-care (01) | LOC: WOUND 08:24 | DX: L97.822 Non-pressure chronic ulcer of other part of left lower leg with fat layer exposed (principal); L97.811 Non-pressure chronic ulcer of other part of right lower leg limited to breakdown of skin; E03.9 Hypothyroidism, unspecified; G47.33 Obstructive sleep apnea (adult) (pediatric); I10 Essential (primary) hypertension; J44.9 Chronic obstructive pulmonary disease, unspecified; I73.9 Peripheral vascular disease, unspecified; I87.2 Venous insufficiency (chronic) (peripheral) | CPT/HCPCS: A6213; G0463 ==

== ENCOUNTER 2024-01-02 01:03 | Day surgery (SDC) | payer MEDICARE, BC | END 2024-01-02 23:15 | disposition home or self-care (01) | LOC: WOUND 01:03 | DX: L97.822 Non-pressure chronic ulcer of other part of left lower leg with fat layer exposed (principal); L97.812 Non-pressure chronic ulcer of other part of right lower leg with fat layer exposed; I87.2 Venous insufficiency (chronic) (peripheral); I73.9 Peripheral vascular disease, unspecified; E03.9 Hypothyroidism, unspecified; G47.33 Obstructive sleep apnea (adult) (pediatric); I10 Essential (primary) hypertension; J44.9 Chronic obstructive pulmonary disease, unspecified | CPT/HCPCS: A6196; G0463 ==

== ENCOUNTER 2024-01-09 04:46 | Day surgery (SDC) | payer MEDICARE, BC | END 2024-01-09 23:49 | disposition home or self-care (01) | LOC: WOUND 04:46 | DX: L97.812 Non-pressure chronic ulcer of other part of right lower leg with fat layer exposed (principal); L97.822 Non-pressure chronic ulcer of other part of left lower leg with fat layer exposed; I87.002 Postthrombotic syndrome without complications of left lower extremity; I73.9 Peripheral vascular disease, unspecified; E03.9 Hypothyroidism, unspecified; G47.33 Obstructive sleep apnea (adult) (pediatric); I10 Essential (primary) hypertension; J44.9 Chronic obstructive pulmonary disease, unspecified | CPT/HCPCS: A6196; G0463 ==

== ENCOUNTER 2024-01-16 02:22 | Day surgery (SDC) | payer MEDICARE, BC | END 2024-01-16 23:00 | disposition home or self-care (01) | LOC: WOUND 02:22 | DX: L97.812 Non-pressure chronic ulcer of other part of right lower leg with fat layer exposed (principal); L97.822 Non-pressure chronic ulcer of other part of left lower leg with fat layer exposed; I87.2 Venous insufficiency (chronic) (peripheral); I73.9 Peripheral vascular disease, unspecified; E03.9 Hypothyroidism, unspecified; G47.33 Obstructive sleep apnea (adult) (pediatric); I10 Essential (primary) hypertension; J44.9 Chronic obstructive pulmonary disease, unspecified; M48.062 Spinal stenosis, lumbar region with neurogenic claudication; M41.9 Scoliosis, unspecified; M51.34 Other intervertebral disc degeneration, thoracic region; Z98.1 Arthrodesis status; Z96.89 Presence of other specified functional implants; Z96.641 Presence of right artificial hip joint | CPT/HCPCS: 72110; G0463 ==

== ENCOUNTER 2024-01-23 04:15 | Day surgery (SDC) | payer MEDICARE, BC | END 2024-01-23 23:00 | disposition home or self-care (01) | LOC: WOUND 04:15 | DX: L97.812 Non-pressure chronic ulcer of other part of right lower leg with fat layer exposed (principal); L97.822 Non-pressure chronic ulcer of other part of left lower leg with fat layer exposed; I87.2 Venous insufficiency (chronic) (peripheral); I73.9 Peripheral vascular disease, unspecified; E03.9 Hypothyroidism, unspecified; I10 Essential (primary) hypertension; J44.9 Chronic obstructive pulmonary disease, unspecified | CPT/HCPCS: G0463 ==

== ENCOUNTER 2024-01-29 07:01 | Day surgery (SDC) | payer MEDICARE, BC | END 2024-01-29 23:25 | disposition home or self-care (01) | LOC: WOUND 07:01 | DX: L97.812 Non-pressure chronic ulcer of other part of right lower leg with fat layer exposed (principal); L97.822 Non-pressure chronic ulcer of other part of left lower leg with fat layer exposed; I87.2 Venous insufficiency (chronic) (peripheral); I73.9 Peripheral vascular disease, unspecified; E03.9 Hypothyroidism, unspecified; L40.9 Psoriasis, unspecified; G47.33 Obstructive sleep apnea (adult) (pediatric); I10 Essential (primary) hypertension; J44.9 Chronic obstructive pulmonary disease, unspecified | CPT/HCPCS: G0463 ==

== ENCOUNTER 2024-02-06 01:19 | Day surgery (SDC) | payer MEDICARE, BC | END 2024-02-06 23:00 | disposition home or self-care (01) | LOC: WOUND 01:19 | DX: L97.812 Non-pressure chronic ulcer of other part of right lower leg with fat layer exposed (principal); L97.822 Non-pressure chronic ulcer of other part of left lower leg with fat layer exposed; I87.2 Venous insufficiency (chronic) (peripheral); I73.9 Peripheral vascular disease, unspecified | CPT/HCPCS: G0463 ==

== ENCOUNTER 2024-02-13 06:01 | Day surgery (SDC) | payer MEDICARE, BC | END 2024-02-13 23:00 | disposition home or self-care (01) | LOC: WOUND 06:01 | DX: L97.812 Non-pressure chronic ulcer of other part of right lower leg with fat layer exposed (principal); L97.822 Non-pressure chronic ulcer of other part of left lower leg with fat layer exposed; L40.9 Psoriasis, unspecified; L43.8 Other lichen planus; E06.3 Autoimmune thyroiditis; G47.33 Obstructive sleep apnea (adult) (pediatric); I10 Essential (primary) hypertension; I87.2 Venous insufficiency (chronic) (peripheral); I73.9 Peripheral vascular disease, unspecified; J44.9 Chronic obstructive pulmonary disease, unspecified; R63.5 Abnormal weight gain; Z79.899 Other long term (current) drug therapy | CPT/HCPCS: 71046; 80076; 83880; 84443; 84478; 85025; G0463 ==

== ENCOUNTER 2024-02-20 08:22 | Day surgery (SDC) | payer MEDICARE, BC | END 2024-02-20 23:00 | disposition home or self-care (01) | LOC: WOUND 08:22 | DX: L97.812 Non-pressure chronic ulcer of other part of right lower leg with fat layer exposed (principal); L97.822 Non-pressure chronic ulcer of other part of left lower leg with fat layer exposed; I87.2 Venous insufficiency (chronic) (peripheral); I73.9 Peripheral vascular disease, unspecified; M79.672 Pain in left foot; E03.9 Hypothyroidism, unspecified; L40.9 Psoriasis, unspecified; G47.33 Obstructive sleep apnea (adult) (pediatric); I10 Essential (primary) hypertension; J44.9 Chronic obstructive pulmonary disease, unspecified | CPT/HCPCS: 73630; G0463 ==

== ENCOUNTER 2024-03-05 05:23 | Day surgery (SDC) | payer MEDICARE, BC | END 2024-03-05 23:00 | disposition home or self-care (01) | LOC: WOUND 05:23 | DX: L97.819 Non-pressure chronic ulcer of other part of right lower leg with unspecified severity (principal); L97.829 Non-pressure chronic ulcer of other part of left lower leg with unspecified severity; I87.2 Venous insufficiency (chronic) (peripheral); I73.9 Peripheral vascular disease, unspecified; I10 Essential (primary) hypertension; J44.9 Chronic obstructive pulmonary disease, unspecified; L40.9 Psoriasis, unspecified; E03.9 Hypothyroidism, unspecified; K58.9 Irritable bowel syndrome, unspecified | CPT/HCPCS: G0463 ==

== ENCOUNTER → 2024-05-02 | Outpatient (CLI) | payer MEDICARE ==
[2024-05-02 16:30] LABS: Hematocrit 34.4 % (37.0-53.0); Hemoglobin 10.4 g/dL (13.5-17.5); Mean Corpuscular HGB 26.5 pg (26.0-34.0); Mean Corpuscular HGB Conc 30.2 g/dL (31.5-36.5); Mean Corpuscular Volume 88 fL (80-100); Mean Platelet Volume 9.9 fL (9.1-12.4); Platelet Count 230 K/mm3 (150-400); RDW Coefficient Variation 17.3 % (11.7-14.2); RDW Standard Deviation 55.8 fL (35.1-46.3); Red Blood Cell Count 3.93 M/mm3 (4.30-5.90); White Blood Cell Count 7.24 K/mm3 (4.00-11.30)
[2024-05-02 18:16] LABS: Albumin, Blood 3.2 g/dL (3.4-5.0); Albumin/Globulin Ratio 0.9 (0.8-1.8); Bilirubin, Total 0.6 mg/dL (0.1-1.0); Calcium, Blood 8.5 mg/dL (8.5-10.1); Creatinine, Blood 0.88 mg/dL (0.60-1.20); Globulin, Blood 3.4 g/dL (2.2-4.0); Potassium, Blood 4.1 mmol/L (3.5-5.5); Total Protein, Blood 6.6 g/dL (6.4-8.2)
== END | disposition home or self-care (01) ==
LOC: LAB SHORT 10:20 → LAB 10:20
PROVIDERS: Internal Medicine Rheumatology
DX: L40.9 Psoriasis, unspecified (principal)
CPT/HCPCS: 80053; 85027; 85651

== ENCOUNTER 2024-05-05 08:19 | Emergency (ER) | payer MEDICARE, BC ==
[~2024-05-05] VITALS: Ht 167.6 cm; Wt 113.4 kg
[2024-05-05] MEDS ORDERED: Ketorolac Tromethamine 15mg Vial IV ONE (09:05)
[2024-05-05 09:28] LABS: BASOPHILS ABSOLUTE AUTO 0.03 K/mm3 (0.00-0.23); BASOPHILS PERCENT AUTO 0 % (0-2); EOSINOPHILS ABSOLUTE AUTO 0.07 K/mm3 (0.00-0.68); EOSINOPHILS PERCENT AUTO 1 % (0-6); Hematocrit 35.1 % (37.0-53.0); Hemoglobin 11.1 g/dL (13.5-17.5); IMMATURE GRAN ABSOLUTE AUTO 0.02 K/mm3 (0.00-0.10); IMMATURE GRAN PERCENT AUTO 0 % (0-1); LYMPHOCYTES ABSOLUTE AUTO 0.65 K/mm3 (0.84-5.20); LYMPHOCYTES PERCENT AUTO 6 % (21-46); MONOCYTES ABSOLUTE AUTO 0.62 K/mm3 (0.16-1.47); MONOCYTES PERCENT AUTO 6 % (4-13); Mean Corpuscular HGB 27.1 pg (26.0-34.0); Mean Corpuscular HGB Conc 31.6 g/dL (31.5-36.5); Mean Corpuscular Volume 86 fL (80-100); Mean Platelet Volume 9.3 fL (9.1-12.4); NEUTROPHILS ABSOLUTE AUTO 9.03 K/mm3 (1.96-9.15); NEUTROPHILS PERCENT AUTO 87 % (41-73); Platelet Count 229 K/mm3 (150-400); RDW Coefficient Variation 17.2 % (11.7-14.2); White Blood Cell Count 10.42 K/mm3 (4.00-11.30)
[2024-05-05 09:53] LABS: Albumin, Blood 3.5 g/dL (3.4-5.0); Albumin/Globulin Ratio 0.9 (0.8-1.8); Bilirubin, Total 0.8 mg/dL (0.1-1.0); Bun/Creatinine Ratio 25.6 (12.0-20.0); Calcium, Blood 8.5 mg/dL (8.5-10.1); Creatinine, Blood 0.78 mg/dL (0.60-1.20); Globulin, Blood 3.9 g/dL (2.2-4.0); Potassium, Blood 3.7 mmol/L (3.5-5.5); Total Protein, Blood 7.4 g/dL (6.4-8.2)
[2024-05-05] MEDS ORDERED: Diphth,Pertuss(Acell),Tet Vac 0.5 ML VIAL IM ONE (10:20)
[2024-05-05 11:02] VITALS: BP 177/94
== END 2024-05-05 11:03 | disposition home or self-care (01) ==
LOC: ER 08:19
PROVIDERS: Physician Assistant
DX: S93.601A Unspecified sprain of right foot, initial encounter (principal); E03.9 Hypothyroidism, unspecified; I10 Essential (primary) hypertension; Z88.8 Allergy status to other drugs, medicaments and biological substances; Z91.048 Other nonmedicinal substance allergy status; Z88.1 Allergy status to other antibiotic agents; Z91.041 Radiographic dye allergy status; Z91.040 Latex allergy status; Z79.890 Hormone replacement therapy; Z79.899 Other long term (current) drug therapy; Z87.891 Personal history of nicotine dependence; X50.1XXA Overexertion from prolonged static or awkward postures, initial encounter
CPT/HCPCS: 73630; 80053; 83605; 85025; 90471; 90715; 96374; 99283-25; J1885

== ENCOUNTER 2024-05-10 00:21 | Day surgery (SDC) | payer MEDICARE, BC | END 2024-05-10 23:00 | disposition home or self-care (01) | LOC: WOUND 00:21 | DX: S90.31XD Contusion of right foot, subsequent encounter (principal); I87.2 Venous insufficiency (chronic) (peripheral); I10 Essential (primary) hypertension; J44.9 Chronic obstructive pulmonary disease, unspecified; G60.9 Hereditary and idiopathic neuropathy, unspecified; M21.372 Foot drop, left foot; E03.9 Hypothyroidism, unspecified; G47.33 Obstructive sleep apnea (adult) (pediatric); Z87.891 Personal history of nicotine dependence; Z88.5 Allergy status to narcotic agent; Z88.8 Allergy status to other drugs, medicaments and biological substances; X58.XXXD Exposure to other specified factors, subsequent encounter; I89.0 Lymphedema, not elsewhere classified | CPT/HCPCS: G0463 ==

== ENCOUNTER 2024-05-17 03:26 | Day surgery (SDC) | payer MEDICARE, BC ==
[2024-05-17] MEDS ORDERED: Lidocaine HCl 4% Cream 5 GM ONE (08:56)
== END 2024-05-17 23:00 | disposition home or self-care (01) ==
LOC: WOUND 03:26
DX: S90.31XA Contusion of right foot, initial encounter (principal); I87.2 Venous insufficiency (chronic) (peripheral); I10 Essential (primary) hypertension; J44.9 Chronic obstructive pulmonary disease, unspecified; G60.9 Hereditary and idiopathic neuropathy, unspecified; M21.372 Foot drop, left foot; E03.9 Hypothyroidism, unspecified; G47.33 Obstructive sleep apnea (adult) (pediatric); L40.9 Psoriasis, unspecified; X58.XXXA Exposure to other specified factors, initial encounter
CPT/HCPCS: A9270

== ENCOUNTER 2024-05-24 02:37 | Day surgery (SDC) | payer MEDICARE, BC | END 2024-05-24 23:00 | disposition home or self-care (01) | LOC: WOUND 02:37 | DX: S91.301A Unspecified open wound, right foot, initial encounter (principal); I87.2 Venous insufficiency (chronic) (peripheral); I10 Essential (primary) hypertension; J44.9 Chronic obstructive pulmonary disease, unspecified; G60.9 Hereditary and idiopathic neuropathy, unspecified; M21.372 Foot drop, left foot; L40.9 Psoriasis, unspecified; E03.9 Hypothyroidism, unspecified; Z79.890 Hormone replacement therapy; Z79.899 Other long term (current) drug therapy; W19.XXXA Unspecified fall, initial encounter | CPT/HCPCS: G0463 ==

== ENCOUNTER → 2024-10-16 | Outpatient (CLI) | payer MEDICARE ==
[2024-10-23 08:56] LABS: Stool Occult Bld Immuno 1 Negative (NEGATIVE)
== END ==
LOC: LAB 15:36 → LAB SHORT 15:36
PROVIDERS: Nurse Practitioner Family
DX: D50.9 Iron deficiency anemia, unspecified (principal)
CPT/HCPCS: G0328

== ENCOUNTER → 2025-01-13 | Outpatient (CLI) | payer MEDICARE, BC | LOC: LAB 10:18 → LAB SHORT 10:18 | DX: I1A.0 Resistant hypertension (principal) | CPT/HCPCS: 82043 ==